=== PATIENT | male | born 1965 | race Caucasian/White ===

== ENCOUNTER 2017-02-24 05:46 | Outpatient (CLI) | payer BC ==
[~2017-02-24] VITALS: Ht 177.8 cm; Wt 117.9 kg
[~2017-02-24 05:46] MED LIST: ASP325TEC PO; BENA1TAB12 PO; NIAC1000 PO
[2017-02-24] MEDS ORDERED: METF1000 PO (11:35)
[2017-02-24] MEDS ORDERED: BENA1TAB15 PO (11:35)
[2017-02-24] MEDS ORDERED: PANT40TA3 PO (11:35)
== END 2017-02-24 12:01 ==
LOC: PREOP 05:46
PROVIDERS: ATTEND Internal Medicine
DX: Z01.818 Encounter for other preprocedural examination (principal); Z12.11 Encounter for screening for malignant neoplasm of colon

== ENCOUNTER 2017-02-26 07:01 | Day surgery (SDC) | payer BC, OTHER ==
--- NOTE | 2017-02-03 08:37 | HISTORY AND PHYSICAL ---
DATE OF SERVICE: HISTORY OF PRESENT ILLNESS: The patient is a 51-year-old white male who presented to the office for followup of hypertension and insulin resistance. He has not accomplished screening colonoscopy and this was set up for February 26. He seemed to be of average risk as he is not aware of any family history for colon cancer or polyps, although he does not know a lot about family history on questioning. He denies any bowel habit change and has noted no bright red blood per rectum or melena. PAST MEDICAL HISTORY: Hypertension and insulin resistance with overweight status. PAST SURGICAL HISTORY: He has had a deviated septum correction surgery with no past abdominal surgeries. He had a right ACL repair in 1981. SOCIAL HISTORY: He has no past drinking or smoking history. He is unemployed and with children. PHYSICAL EXAMINATION: GENERAL: Reveals a pleasant white male 257 pounds, 5 feet 11 inches. VITAL SIGNS: Blood pressure 130/98 at the beginning of the interview. At the end of the interview, he was down to 120/86. CHEST: Clear. CARDIOVASCULAR: Regular rate and rhythm without murmur, S3 or S4. ABDOMEN: Soft, supple without mass, organomegaly or tenderness. Rectal examination deferred at the time of colonoscopy. EXTREMITIES: Reveal no cyanosis, clubbing or edema. ASSESSMENT: The patient was set up for screening colonoscopy on February. Prep instructions with Suprep kit were given and questions were answered. Job ID: [id number] DocumentID: [id number] Dictated Date: 02/02/2017 09:51:01 Adjunct Spanish Instructor Date: 02/02/2017 10:33:55 Dictated By: ESTEFANY POLANCO MD
[~2017-02-26] VITALS: Ht 177.8 cm; Wt 117.9 kg
[~2017-02-26 07:01] MED LIST changes: +BENA1TAB15 PO; +METF1000 PO; +PANT40TA3 PO
[2017-02-26] MEDS ORDERED: 1/2 NS IV SOLUTION 1,000 ML IV ONE (07:11)
[2017-02-26] MEDS ORDERED: 1/2 NS IV SOLUTION 1,000 ML IV STA (07:13)
[2017-02-26] MEDS ORDERED: MIDAZOLAM 2 MG/2 ML (VERSED) VIAL IVP PRN (07:15)
[2017-02-26] MEDS ORDERED: LIDOCAINE JELLY 2% (XYLOCAINE) 5 ML TUBE MM PRN (07:15)
[2017-02-26 07:26] VITALS: BP 158/97
--- NOTE | 2017-02-26 07:30 | Pre-Op Note & Conscious Sedat ---
Pre-Operative Progress Note H&P Reviewed The H&P was reviewed, patient examined and no changes noted. Date H&P Reviewed: Feb 26, 2017 Time H&P Reviewed: 07:30 Conscious Sedation Pre-Proced ASA Class: 2 Airway Mallampati Classification: (resighini appropriate class) I. II. III, IV Lungs Heart ASA score ASA 1: a normal healthy patient ASA 2: a patient with a mild systemic disease (mid diabetes, controlled hypertension, obesity ASA 3: a patient with a severe systemic disease that limits activity (angina , COPD, prior Myocardial infarction) ASA 4: a patient with an incapacitating disease that is a constant threat to life (CHF, renal failure) ASA 5: a moribund patient not expected to survive 24 hrs. (ruptured aneurysm) ASA 6: a declared brain patient whose organs are being harvested. For emergent operations, add the letter E after the classification Grade 3 Sedation Plan: Analgesia, Amnesia, Plan communicated to team members, Discussed options with patient/fam, Discussed risks with patient/fam Note The patient is an appropriate candidate to undergo the planned procedure, sedation, and anesthesia. The patient immediately re-assessed prior to indication. ESTEFANY POLANCO MD Feb 26, 2017 07:30
[2017-02-26] MEDS ORDERED: LIDOCAINE JELLY 2% (XYLOCAINE) 5 ML TUBE ONE (07:37)
[2017-02-26] MEDS ORDERED: fentaNYL INJECTION 100 MCG/2 ML AMP ONE (07:38)
[2017-02-26] MEDS ORDERED: MIDAZOLAM 2 MG/2 ML (VERSED) VIAL ONE ×3 (07:38)
[2017-02-26] MEDS: fentaNYL INJECTION 100 MCG/2 ML AMP IVP PRN ×2 (07:57→08:04)
[2017-02-26 08:40] VITALS: BP 166/105
[2017-02-26 09:10] VITALS: BP 156/113
[2017-02-26 09:15] VITALS: BP 156/113
--- NOTE | 2017-02-27 14:06 | OPERATIVE REPORT ---
DATE OF SERVICE: COLONOSCOPY SUMMARY INDICATION FOR THE PROCEDURE: Screening. DESCRIPTION OF PROCEDURE: The patient was placed in the left lateral decubitus position. Prior to undergoing colonoscopy, a digital rectal evaluation was performed. Anal sphincter tone was normal. The perianal reflex was intact. The prostate was normal in size, anodular and nontender to digital inspection. No abnormalities noted on additional inspection of anal canal or distal rectal vault. The colonoscope was then inserted into the rectum under direct visualization advanced to the cecum. The cecum was identified by identification of the ileocecal valve and the cecal strap. Photographic documentation was obtained. A careful inspection was made as the colonoscope was withdrawn. FINDINGS: There was no evidence for internal or external hemorrhoids and the rectum, sigmoid colon, descending colon, splenic flexure, transverse colon, hepatic flexure, ascending colon and cecum were unremarkable without evidence for diverticular disease or neoplasia. ASSESSMENT: Normal colonoscopy to the cecum. We will advocate consideration for repeat screening colonoscopy in 10 years as the patient is not aware of any family history for colon cancer. Job ID: [id number] DocumentID: [id number] Dictated Date: 02/26/2017 13:07:05 Hydrogen Treater Date: 02/27/2017 04:05:14 Dictated By: ESTEFANY POLANCO MD
== END 2017-02-26 09:15 | disposition home or self-care (01) ==
LOC: ENDO 07:01
PROVIDERS: ATTEND Internal Medicine
DX: Z12.11 Encounter for screening for malignant neoplasm of colon (principal); I10 Essential (primary) hypertension; E88.81 Metabolic syndrome and other insulin resistance; E66.3 Overweight

== ENCOUNTER → 2022-07-01 | Outpatient (CLI) | payer OTHER ==
[~2022-07-01] MED LIST changes: +METF-399 PO; -METF1000 PO; -PANT40TA3 PO; +PANT40TA52 PO
== END ==
LOC: ORTHO 09:18
PROVIDERS: ATTEND Orthopaedic Surgery
DX: M17.0 Bilateral primary osteoarthritis of knee (principal)
CPT/HCPCS: 99203

== ENCOUNTER → 2022-08-04 | Outpatient (CLI) | payer OTHER ==
--- NOTE | 2022-08-04 15:33 | Diagnostic Imaging Report ---
EXAMINATION: Chest 2 view HISTORY: Chest pain COMPARISON: None available. FINDINGS: The lungs are clear without edema or pneumonia. No pleural effusion or pneumothorax. Heart size is normal. IMPRESSION: 1. Clear lungs. Dictated by: Dictated on workstation # [id number]
--- NOTE | 2022-08-04 16:46 | Diagnostic Imaging Report ---
EXAMINATION: Left knee radiographs, 2 views. Right knee radiographs, 2 views. COMPARISON: None. HISTORY: 57-year-old male, bilateral knee pain. FINDINGS: There is moderate medial and patellofemoral compartment joint space loss of the left knee. There are tiny left patellofemoral compartment osteophytes. There is no left knee joint effusion. There is severe tricompartmental joint space loss of the right knee. There is a moderate-sized right knee joint effusion. There is a metallic staple in the region of the lateral aspect of the proximal tibial metaphysis. There is chondrocalcinosis. There is no identified acute fracture. There is nonspecific soft tissue swelling anteriorly on the right. IMPRESSION: 1. Severe tricompartmental osteoarthritis of the right knee with moderate sized knee joint effusion. 2. Moderate medial and patellofemoral compartment osteoarthritis of the left knee without left knee joint effusion. 3. No identified acute bony abnormality. Dictated by: Dictated on workstation # [id number]
== END ==
LOC: ORTHO 11:17
PROVIDERS: ATTEND Orthopaedic Surgery
DX: Z01.89 Encounter for other specified special examinations (principal); M17.0 Bilateral primary osteoarthritis of knee; R07.9 Chest pain, unspecified
CPT/HCPCS: 71046

== ENCOUNTER 2022-08-10 08:13 | Outpatient (CLI) | payer OTHER ==
[~2022-08-10] VITALS: Ht 177.8 cm; Wt 116.7 kg
[2022-08-10] MEDS ORDERED: AMLO-251 PO (08:57)
[2022-08-10] MEDS ORDERED: MULTI VITAMIN (08:57)
[2022-08-10] MEDS ORDERED: ACET-2422 PO (08:57)
[2022-08-10] MEDS ORDERED: DIPH25TA29 PO (08:57)
[2022-08-10] MEDS ORDERED: FLUT9.9S NS (08:57)
[2022-08-10] MEDS ORDERED: IBUP-1773 PO (09:02)
[2022-08-10 09:37] LABS: BILIRUBIN,URINE NEGATIVE (NEGATIVE); CLARITY,URINE CLEAR; COLOR,URINE YELLOW; GLUCOSE, URINE (UA) NEGATIVE (NEGATIVE); KETONES,URINE NEGATIVE (NEGATIVE); LEUKOCYTE ESTERASE ,URINE NEGATIVE (NEGATIVE); NITRITE,URINE NEGATIVE (NEGATIVE); PROTEIN,URINE NEGATIVE (NEGATIVE)
[2022-08-10 09:39] VITALS: BP 137/99
[2022-08-10 09:45] LABS: BASOPHILS % (AUTO) 1 % (0-10); EOSINOPHILS # (AUTO) 0.1 10^3/uL (0.0-0.3); EOSINOPHILS % (AUTO) 3 % (0-10); HEMATOCRIT 41 % (40-54); HEMOGLOBIN 14.3 g/dL (13.3-17.7); LYMPHOCYTES # (AUTO) 0.9 10^3/uL (1.0-4.0); LYMPHOCYTES % (AUTO) 16 % (12-44); MEAN CORPUSCULAR HEMOGLOBIN 31 pg (25-34); MEAN CORPUSCULAR HGB CONC 35 g/dL (32-36); MEAN CORPUSCULAR VOLUME 88 fL (80-99); MEAN PLATELET VOLUME 8.9 fL (9.0-12.2); MONOCYTES # (AUTO) 0.7 10^3/uL (0.0-1.0); MONOCYTES % (AUTO) 13 % (0-12); NEUTROPHILS # (AUTO) 3.8 10^3/uL (1.8-7.8); NEUTROPHILS % (AUTO) 68 % (42-75); PLATELET COUNT 314 10^3/uL (130-400); WHITE BLOOD COUNT 5.6 10^3/uL (4.3-11.0)
[2022-08-10 09:55] LABS: BACTERIA,URINE NEGATIVE /HPF
[2022-08-10 10:03] LABS: CALCIUM 9.7 MG/DL (8.5-10.1); CREATININE SERUM 0.88 MG/DL (0.60-1.30); POTASSIUM 3.6 MMOL/L (3.6-5.0)
--- NOTE | 2022-08-10 11:40 | Diagnostic Imaging Report ---
INDICATION: Preoperative evaluation prior to knee replacement. COMPARISON: 08/04/2022 FINDINGS: Frontal and lateral views of the chest demonstrate normal heart size and pulmonary vascularity. The lungs are clear. There are no signs of infiltrate, pleural effusions or pneumothoraces. The visualized osseous structures show no acute abnormalities. IMPRESSION: 1. No acute process. No signs of infiltrates, effusions or pneumothoraces. Dictated by: Dictated on workstation # [id number]
== END 2022-08-10 12:53 ==
LOC: PREOP 08:13
PROVIDERS: ATTEND Orthopaedic Surgery
DX: Z01.818 Encounter for other preprocedural examination (principal); M17.11 Unilateral primary osteoarthritis, right knee
CPT/HCPCS: 36415; 71046; 80048; 81000; 85025; 87081; 93005

== ENCOUNTER 2022-08-17 08:08 | Inpatient (IN) | payer OTHER ==
[2022-08-17] VITALS (9 sets, daily range): BP systolic 124–153; BP diastolic 77–98
[~2022-08-17] VITALS: Ht 177.8 cm; Wt 116.7 kg
[~2022-08-17 08:08] MED LIST changes: +ACET-2422 PO; +AMLO-251 PO; +DIPH25TA29 PO; +FLUT9.9S NS; +IBUP-1773 PO; +MULTI VITAMIN
[2022-08-17] MEDS ORDERED: ceFAZolin INJECTION 2,000 MG in NS (IVPB) 50 ML IV ONE (08:15)
[2022-08-17] MEDS: LACTATED RINGERS 1,000 ML IV PRN ×2 (08:36→10:30)
[2022-08-17] MEDS ORDERED: fentaNYL INJ 100 MCG/2 ML AMP ONE (09:29)
[2022-08-17] MEDS ORDERED: BUPIVACAINE 0.5% 30 ML (SENSORCAINE) VIAL ONE (09:34)
--- NOTE | 2022-08-17 09:43 | Progress Note-Pre Operative ---
Pre-Operative Progress Note Date of Available H&P: Aug 04, 2022 Date H&P Reviewed: Aug 17, 2022 Time H&P Reviewed: 09:35 History & Physical: H&P Reviewed, Patient Examed, No changes noted Pre-Operative Diagnosis: Right Knee Primary Osteoarthritis MARIUM CULLEN MD Aug 17, 2022 09:43
[2022-08-17] MEDS ORDERED: MIDAZOLAM 2 MG/2 ML (VERSED) VIAL ONE (09:46)
[2022-08-17] MEDS ORDERED: TRANEXAMIC ACID 100 MG/ML 10 ML INJECTION ONE (10:07)
[2022-08-17] MEDS ORDERED: PROPOFOL INJECTION 50 ML IV ONE (11:43)
[2022-08-17] MEDS ORDERED: ONDANSETRON 4 MG/2 ML (SDV) Z0FRAN IV PRN (12:30)
[2022-08-17] MEDS ORDERED: BISACODYL 5 MG (DULCOLAX) TABLET PO PRN (12:30)
[2022-08-17] MEDS ORDERED: ACETAMINOPHEN 500 MG TAB (TYLENOL) PO PRN (12:30)
[2022-08-17] MEDS ORDERED: MILK OF MAGNESIA 400 MG/5 ML 30 ML UDC PO PRN (12:30)
--- NOTE | 2022-08-17 12:30 | Operative Report - Ortho ---
Operative Report Surgeon (s)/Drop Shipment Clerk (s) Surgeon MARIUM CULLEN MD Drop Shipment Clerk n/a Pre-Operative Diagnosis Right Knee Primary Osteoarthritis Post-Operative Diagnosis same Operative Report Date of Procedure: Aug 17, 2022 Name of Procedure Performed: Right Total Knee Arthroplasty Description & Findings After obtaining informed consent and marking the patient in the preoperative holding area, the patient did receive IV antibiotics. Patient was taken to the operating room and anesthesia was induced. Surgical timeout was taken. The right lower extremity was prepped and draped in the usual sterile fashion. Incision was made through prior scar and carried down to fascia. Arthrotomy was performed on the medial side of the patella. Patella was retracted laterally and knee was flexed. Found to have circumferential osteophtye around the distal femur as well as exposed bone in the weightbearing compartments. Hole was made in the distal femur for the intramedullary distal femoral cutting guide. Resection was made then the femur was sized as a 6. 4-in-1 block for a size [address]. Anterior cut was made and there was no notch. Posterior cut was made followed by the chamfers. Box cut was performed. Lug holes were drilled. Attention was turned to the tibial side, extramedullary tibial guide was put into place and aligned with the tibial crest. It was set to take 2 mm off of the affected side. Drop fe was used to confirm alignment. Resection was made and was parallel to the joint line. Tibial bone block was removed. [place]ina locomotive lubricating systems clerk was put into place and the menisci and posterior osteophytes were removed. The knee was trialed with a size 6 femur and a size 6 tibia with an 11 mm poly trial. It was found to come out to full extension and flexed beyond 120 degrees. It was stable to varus and valgus stress throughout its range of motion. This was accepted. Knee was brought out into extension and the patella was prepared for an inset patellar button. Trial patella was placed and tracked well. Trial implants were removed. Tibial tray was pinned and punched. Tibial press fit guide was placed and holes were drilled. The cut bone surfaces were lavaged with pulsatile normal saline. Implants were opened and assembled on the back table. A size 6 press fit tibial component was impacted into place. A size 6 press fit femoral component was impacted into place. Tibial tray was lavaged with saline. An 11 mm thick polyethylene component was locked into placed and the locking mechanism was checked. Knee was brought into extension. Press fit patellar component was p laced and pressurized. Betadine soak was performed and then, the knee was irrigated with normal saline. The knee was once again trialed; found to come to full extension, flexed beyond 120 degrees, and was stable to varus and valgus stress. Tourniquet was dropped and electrocautery was used for hemostasis. Fascial layer was closed with #2 Stratafix. The subcutaneous layer was closed with 2-0 Vicryl. The skin was closed with a running subcuticular 3-0 V-loc. Wound was dressed with steri- strips, xeroform, 4x4s, ABD, webril, and CÉSAR wrap. Patient tolerated the procedure well and was stable to the recovery room. Anesthesia Type Spinal Estimated Blood Loss 150 ml Specimen(s) collected/removed None MARIUM CULLEN MD Aug 17, 2022 12:30
--- NOTE | 2022-08-17 12:55 | Diagnostic Imaging Report ---
INDICATION: Postop right knee surgery, replacement TECHNIQUE: 2 portable post operative radiographs of the knee CORRELATION STUDY: None FINDINGS: There are postsurgical changes of a total knee arthroplasty. Alignment is anatomic. Installed hardware appearing unremarkable. Staple over the anterior lateral aspect proximal tibia. Overlying soft tissue gas collections and skin elijah are present. IMPRESSION: Postsurgical changes of a total knee replacement. Dictated by: Dictated on workstation # [id number]
[2022-08-17] MEDS ORDERED: ONDANSETRON 4 MG/2 ML (SDV) Z0FRAN IVP PRN (13:15)
[2022-08-17] MEDS: NS IV 1000 ML 1,000 ML IV SCH ×2 (14:25→22:41)
--- NOTE | 2022-08-17 14:34 | Physical Therapy Progress Note ---
Therapy Progress Note Patient unable to safely participate with skilled PT at this time due to spinal block. PT to evaluate patient tomorrow ZOYA Lawrence PT Aug 17, 2022 14:34
[2022-08-17] MEDS: morphine INJ 4 MG/ML 1 ML (VIAL/SYRINGE) IVP PRN ×3 (15:43→20:04)
[2022-08-17] MEDS: ASPIRIN E.C. 81 MG (ECOTRIN) TAB PO SCH (18:24)
[2022-08-17] MEDS: CELECOXIB 100 MG (CeleBREX) CAP PO SCH (20:05)
[2022-08-17] MEDS: DOCUSATE SODIUM 100 MG (COLACE) CAP PO SCH (20:05)
[2022-08-17] MEDS: ceFAZolin INJECTION 2,000 MG in NS (IVPB) 50 ML IV SCH (20:06)
[2022-08-17] MEDS ORDERED: ceFAZolin INJECTION 2,000 MG in NS (IVPB) 50 ML IV SCH (21:00)
[2022-08-17] MEDS ORDERED: amLODIPine 10 MG (NORVASC) TAB ONE (21:35)
[2022-08-17] MEDS: amLODIPine 10 MG (NORVASC) TAB PO SCH (21:38)
[2022-08-18] VITALS (7 sets, daily range): BP systolic 135–168; BP diastolic 76–89
[2022-08-18] MEDS: ceFAZolin INJECTION 2,000 MG in NS (IVPB) 50 ML IV SCH (05:47)
[2022-08-18 05:48] LABS: HEMOGLOBIN 11.7 g/dL (13.3-17.7)
[2022-08-18] MEDS: MULTIVIT W/MINERALS TAB (THERAGRAN M) PO SCH (05:48)
[2022-08-18] MEDS: NS IV 1000 ML 1,000 ML IV SCH (08:36)
[2022-08-18] MEDS: DOCUSATE SODIUM 100 MG (COLACE) CAP PO SCH ×2 (08:40→20:23)
[2022-08-18] MEDS: ASPIRIN E.C. 81 MG (ECOTRIN) TAB PO SCH ×2 (08:40→17:19)
[2022-08-18] MEDS: CELECOXIB 100 MG (CeleBREX) CAP PO SCH ×2 (08:40→20:23)
[2022-08-18] MEDS: lisINopril 40 MG (PRINIVIL) TABLET PO SCH (08:40)
[2022-08-18] MEDS: PANTOPRAZOLE 40 MG (PROTONIX) TAB PO SCH (08:41)
[2022-08-18] MEDS: FLUTICASONE NASAL SPRAY (FLONASE) 16 GM BTL NS SCH (08:41)
--- NOTE | 2022-08-18 08:41 | Occupational Therapy Eval ---
OT Evaluation-General/PLF Medical Diagnosis Admission Date Aug 17, 2022 at 13:20 Medical Diagnosis: R TKA Onset Date: Aug 17, 2022 Therapy Diagnosis Therapy Diagnosis: S/P RTKA Height/Weight Height (Feet): 5 Height (Inches): 10.00 Weight (Pounds): 260 Weight (Ounces): 0.0 Precautions Precautions/Isolations: Fall Prevention, Standard Precautions Weight Bear Status Weight Bearing Restriction: Weight Bearing/Tolerated Location Restriction: R LE Referral Referral Reason: Self Care, Evaluation/Treatment Medical History Pertinent Medical History: Arthritis Current History S/P RTKA Reviewed History: Yes ADL-Prior Level of Function SCALE: Activities may be completed with or without assistive devices. 7-Tlsjmcybqx-bcsmfom completes the activity by him/herself with no assistance from a helper. 5-Set-up or Clean-up Assistance-helper sets up or cleans up; patient completes activity. [place] assists only prior to or following the activity. 4-Supervision or Touching Assistance-helper provides verbal cues and/or touching/steadying and/or contact guard assistance as patient completes activity. Assistance may be provided throughout the activity or intermittently. 3-Partial/Moderate Assistance-helper does LESS THAN HALF the effort. [place] lifts, holds or supports trunk or limbs, but provides less than half the effort. 2-Substantial/Maximal Assistance-helper does MORE THAN HALF the effort. [place] lifts or holds trunk or limbs and provides more than half the effort. 0-Lhmoqpton-aiezfr does ALL the effort. Patient does none of the effort to complete the activity. Or, the assistance of 2 or more helpers is required for the patient to complete the activity. If activity was not attempted, code reason: 7-Patient Refused. 9-Not Applicable-not attempted and the patient did not perform the activity before the current illness, exacerbation or injury. 10-Not Attempted due to Environmental Limitations-(lack of equipment, weather restraints, etc.). 88-Not Attempted due to Medical Conditions or Safety Concerns. Drive Self: Yes OT Current Status Subjective Increased pain d/t PT this morning Pain Location: Right Location Body Site: Knee Mental Status/Objective Patient Orientation: Person, Place, Time, Situation Attachments: IV Current Upper Extremity ROM BUE ROM/Strength/coordination WFLS ADL-Treatment Eating (QC): 6 Oral Hygiene (QC): 5 (standing at sink w/ FWW) Shower/Bathe Self (QC): 7 (declined, reports walk in shower at home w/ GBs) Upper Body Dressing (QC): 5 (d/t IV) Lower Body Dressing (QC): 5 (instruction for sequence only) On/Off Footwear (QC): 5 (increased pain w/ knee flexion) Toileting Hygiene (QC): 5 Education OT Patient Education: Correct positioning, Modified ADL techniques, Progress toward Goal/Update tx plan, Purpose of tx/functional activities, Reviewed precautions, Rehab process, Safety issues, Transfer techniques, Use of adapted equipment (instruction for use w/ ADLS and stone grader) Teaching Recipient: Patient, Family Teaching Methods: Demonstration, Discussion Response to Teaching: Return Demonstration OT Outside Solar Sales Consultant Goals Senior Living Goals 1=Demonstrate adherence to instructed precautions during ADL tasks. 2=Patient will verbalize/demonstrate understanding of assistive devices/modifications for ADL. 3=Patient will improve strength/tolerance for activity to enable patient to perform ADL's. OT Education/Plan Problem List/Assessment Assessment: No Skilled OT Needs ID'd Discharge Recommendations Plan/Recommendations: Discontinue OT Therapy Discharge Recommendati: Post Acute OT (patient reports OP physical therapy) Treatment Plan/Plan of Care Treatment,Training & Education: Yes Patient would benefit from OT for education, treatment and training to promote independence in ADL's, mobility, safety and/or upper extremity function for ADL's. Plan of Care: ADL Retraining, Functional Mobility, UE Funct Exercise/Act Comment Patient remains up in chair, nurse to dose pain meds, present. Pt reports constipation. Treatment Duration: Aug 18, 2022 Frequency: 1 time per week Estimated Hrs Per Day: .25 hour per day Agreement: Yes Rehab Potential: Good Time Start Time: 08:20 Stop Time: 08:44 DATE: Aug 18, 2022 Total Time Billed (hr/min): 24 Billed Treatment Time 1 visit EVL 1, ADL 1 24 min SELINA SARABIA OT Aug 18, 2022 08:41
[2022-08-18] MEDS ORDERED: NON-FORMULARY MEDICATION 1 EA EA (Fluticasone Propionate (Flonase Allergy Relief) 2 SPRAY) NS SCH (09:00)
[2022-08-18] MEDS ORDERED: BENAZEPRIL PO SCH (09:00)
[2022-08-18] MEDS ORDERED: HYDROCHLOROTHIAZIDE PO SCH (09:00)
[2022-08-18] MEDS ORDERED: amLODIPine 10 MG (NORVASC) TAB PO SCH (09:00)
[2022-08-18] MEDS ORDERED: [UNRECOGNIZED DRUG - OTHER] PO SCH (09:00)
--- NOTE | 2022-08-18 09:11 | Anesthesia-Regional Post-Op ---
Regional Patient Condition Mental Status: Alert, Oriented x3 Circulation: Same as Pre-Op Headache: Absent Sensation: Full Recovery Motor Block: Absent Post Op Complications Complications None Follow Up Care/Instructions Patient Instructions None needed. Anesthesia/Patient Condition Patient is doing well, no complaints, stable vital signs, no apparent adverse anesthesia problems. No complications reported per nursing. ABIEL HUDDLESTON CRNA Aug 18, 2022 09:11
--- NOTE | 2022-08-18 09:42 | Physical Therapy Evaluation ---
PT Evaluation-General Medical Diagnosis Admission Date Aug 17, 2022 at 13:20 Medical Diagnosis: R TKA Onset Date: Aug 17, 2022 Therapy Diagnosis Therapy Diagnosis: debility Height/Weight Height (Feet): 5 Height (Inches): 10.00 Weight (Pounds): 260 Weight (Ounces): 0.0 Precautions Precautions/Isolations: Fall Prevention, Standard Precautions Referral Physician: Jamil Reason for Referral: Evaluation/Treatment Medical History Pertinent Medical History: Arthritis Current History s/p elective right TKR Reviewed History: Yes Social History Home: Single Level Current Living Status: Spouse Entry Into Home: Ramp Prior Prior Level of Function SCALE: Activities may be completed with or without assistive devices. 6-Heqxzjcvex-mqlbxcd completes the activity by him/herself with no assistance from a helper. 5-Set-up or Clean-up Assistance-helper sets up or cleans up; patient completes activity. [place] assists only prior to or following the activity. 4-Supervision or Touching Assistance-helper provides verbal cues and/or touching/steadying and/or contact guard assistance as patient completes activity. Assistance may be provided throughout the activity or intermittently. 3-Partial/Moderate Assistance-helper does LESS THAN HALF the effort. [place] lifts, holds or supports trunk or limbs, but provides less than half the effort. 2-Substantial/Maximal Assistance-helper does MORE THAN HALF the effort. [place] lifts or holds trunk or limbs and provides more than half the effort. 2-Vzvunovdx-xczrwa does ALL the effort. Patient does none of the effort to complete the activity. Or, the assistance of 2 or more helpers is required for the patient to complete the activity. If activity was not attempted, code reason: 7-Patient Refused. 9-Not Applicable-not attempted and the patient did not perform the activity before the current illness, exacerbation or injury. 10-Not Attempted due to Environmental Limitations-(lack of equipment, weather restraints, etc.). 88-Not Attempted due to Medical Conditions or Safety Concerns. Bed Mobility: 6 Transfers (B,C,W/C): 6 Gait: 6 Stairs: 6 Indoor Mobility (Ambulation): Independent Stairs: Independent Prior Devices Use: None PT Evaluation-Current Subjective Patient agrees to PT. Pain Numeric Pain Scale: 8 Location: Right Location Body Site: Knee Pain Description: Acute Objective Patient Orientation: Normal For Age Attachments: IV ROM/Strength ROM Lower Extremities right knee AAROM flexion 60 degrees/5 degrees extension left knee AROM WFL Strength Lower Extremities right LE 3+/5 grossly/left LE 5/5 Integumentary/Posture Integumentary refer to nursing notes Bowel Incontinence: No Bladder Incontinence: No Posture WFL Neuromuscular (Tone, Coordination, Reflexes) grossly intact Sensory Vision: Functional Hearing: Functional Transfers Lying to Sitting/Side of Bed(Q: 4 Sit to Stand (QC): 4 Chair/Gtc-ha-Slkca Xfer(QC): 4 Gait Mode of Locomotion: Walk Anticipated Mode of Locomotion: Walk Walk 10 feet (QC): 4 Walk 50 ft with 2 Turns(QC): 4 Walk 150 ft (QC): 4 Distance: 250' Gait Assistive Device: FWW Comments/Gait Description slow, antalgic Balance Sitting Static: Normal Sitting Dynamic: Normal Standing Static: Normal Standing Dynamic: Normal Treatment AAROM right LE exercises AP, QS, HS, SLR 15 reps each/seated LAQ 15 reps Assessment/Needs Patient progressing with treatment plan and is up in recliner with needs met. PT to increase activity as tolerated by patient. Rehab Potential: Good PT Colon Therapist Goals Detention Goals PT Detention Goals Time Frame: Aug 22, 2022 Roll Left & Right (QC): 6 Sit to Lying (QC): 6 Lying-Sitting on Side/Bed(QC): 6 Sit to Stand (QC): 6 Chair/Kup-ct-Jkrwh Xfer(QC): 6 Toilet Transfer (QC): 6 Walk 10 feet (QC): 6 Walk 50ft with 2 Turns (QC): 6 Walk 150 ft (QC): 6 PT Plan Problem List Problem List: Safety, Balance, Gait, Transfer, ROM Treatment/Plan Treatment Plan: Continue Plan of Care Treatment Plan: Bed Mobility, Education, Functional Activity Marii, Functional Strength, Gait, Safety, Therapeutic Exercise, Transfers Treatment Duration: Aug 22, 2022 Frequency: 11 times per week Estimated Hrs Per Day: .5 hour per day Patient and/or Family Agrees t: Yes Time Time In: 730 Time Out: 758 DATE: Aug 18, 2022 Total Billed Treatment Time: 28 Total Billed Treatment 1 visit EVModC 10 min FA 18 min ZOYA VORA PT Aug 18, 2022 09:42
--- NOTE | 2022-08-18 09:57 | Progress Note - Ortho ---
Progress Note Subjective Date of Exam 08/18/22 Chief Complaint POD #1 R TKA HPI/Events since last exam doing well overall, did well with therapy this AM Review of Systems - Allergies: Coded Allergies: No Known Drug Allergies (Unverified , 08/10/22) Home Meds Reported Medications Ibuprofen (Ibuprofen) Unknown Strength Tablet, PO Q6H PRN for PAIN-MILD, TAB 08/10/22 [Multi Vitamin] Unknown Strength No Conflict Check 08/10/22 Fluticasone Propionate (Flonase Allergy Relief) 50 Mcg/Actuation [place].susp, 2 SPRAY NS DAILY, #1 EACH 2 SPRAYS PER NOSTRIL DAILY X 2 DAYS THEN 1 SPRAY DAILY 08/10/22 Diphenhydramine HCl (Diphenhydramine HCl) Unknown Strength Tablet, PO, TAB 08/10/22 Amlodipine Besylate (Amlodipine Besylate) 10 Mg Tablet, 10 MG PO DAILY, TAB 08/10/22 Acetaminophen (Acetaminophen ER) Unknown Strength Tablet.er, PO, TAB 08/10/22 Pantoprazole Sodium (Pantoprazole Sodium) 40 Mg Tablet.dr, 40 MG PO DAILY, TAB 02/24/17 Metformin HCl (Metformin HCl) 1,000 Mg Tablet, 2000 MG PO with supper, TAB take 2 (1000mg) tabs 02/24/17 Benazepril/Hydrochlorothiazide (Benazepril-Hctz 20-25 mg Tab) 20 Mg-25 Mg Tablet, 2 EACH PO DAILY, TAB 02/24/17 Objective Exam R Knee: Dressing C/D/I, +DF of Ankle, no s/s of DVT Vital Signs Vital Signs Date Time Temp Pulse Resp B/P (MAP) Pulse Ox O2 Delivery O2 Flow Rate FiO2 08/18/22 08:00 37.6 90 18 163/84 (110) 93 Room Air 08/18/22 03:04 37.0 85 20 146/84 (104) 93 Room Air 08/18/22 00:00 36.4 89 20 141/84 (103) 94 Room Air 08/17/22 20:00 Room Air 0.00 08/17/22 19:23 37.0 83 19 143/83 (103) 93 Room Air 08/17/22 15:55 36.4 75 19 153/82 (105) 96 Room Air 08/17/22 15:31 Room Air 0.00 08/17/22 14:00 96 Room Air 0.00 08/17/22 13:15 Room Air 08/17/22 13:10 36.2 16 129/85 (100) 99 Room Air 08/17/22 13:00 Room Air 08/17/22 13:00 16 135/93 (107) 98 Room Air 08/17/22 12:50 18 133/86 (102) 99 Room Air 08/17/22 12:45 Room Air 08/17/22 12:40 16 135/85 (102) 95 Room Air 08/17/22 12:30 16 129/77 (94) 98 Room Air 08/17/22 12:30 Room Air 08/17/22 12:23 36.2 16 124/81 (95) 98 Room Air 08/17/22 12:23 Room Air I & O 08/18/22 07:00 Intake Total 4100 ml Output Total 695 ml Balance 3405 ml Lab Results Laboratory Tests 08/18/22 05:32: Hemoglobin 11.7L, Hematocrit 34L Imaging 2 postop views of the right knee dated 08/17/22 were reviewed from PACS and demonstrated prior total knee arthroplasty with components in good position, no complication, no change in prior surgical staple in tibia Assessment and Plan Assessment Right Knee Primary Osteoarthritis s/p Right Total Knee Arthroplasty Problem List Right Knee Primary Osteoarthritis s/p Right Total Knee Arthroplasty Plan PT/OT DVT Prophylaxis Home with outpatient PT tomorrow Final Diagonsis Right Knee Primary Osteoarthritis s/p Right Total Knee Arthroplasty Level of the visit: Level 3 (global) MARIUM CULLEN MD Aug 18, 2022 09:57
--- NOTE | 2022-08-18 14:22 | Physical Therapy Daily Note ---
PT Daily Note-Current Subjective Patient agrees to PT. Pain Section J - Health Conditions 1. Rarely or not at all 2. Occasionally 3. Frequently 4. Almost constantly 8. Unable to answer Pain Effect on Sleep: 1 Pain Interference with Therapy: 1 Pain Interference w/Day-to-Day: 1 Mental Status Patient Orientation: Normal For Age Transfers SCALE: Activities may be completed with or without assistive devices. 3-Yvmboqevws-faqwije completes the activity by him/herself with no assistance from a helper. 5-Set-up or Clean-up Assistance-helper sets up or cleans up; patient completes activity. [place] assists only prior to or following the activity. 4-Supervision or Touching Assistance-helper provides verbal cues and/or touching/steadying and/or contact guard assistance as patient completes activity. Assistance may be provided throughout the activity or intermittently. 3-Partial/Moderate Assistance-helper does LESS THAN HALF the effort. [place] lifts, holds or supports trunk or limbs, but provides less than half the effort. 2-Substantial/Maximal Assistance-helper does MORE THAN HALF the effort. [place] lifts or holds trunk or limbs and provides more than half the effort. 1-Ifwhwcgyt-aswpnp does ALL the effort. Patient does none of the effort to complete the activity. Or, the assistance of 2 or more helpers is required for the patient to complete the activity. If activity was not attempted, code reason: 7-Patient Refused. 9-Not Applicable-not attempted and the patient did not perform the activity before the current illness, exacerbation or injury. 10-Not Attempted due to Environmental Limitations-(lack of equipment, weather restraints, etc.). 88-Not Attempted due to Medical Conditions or Safety Concerns. Sit to Lying (QC): 6 Lying to Sitting/Side of Bed(Q: 6 Sit to Stand (QC): 6 Gait Training Distance: 300' Walk 10 feet (QC): 5 Walk 50 ft with 2 Turns(QC): 5 Walk 150 ft (QC): 5 Gait Assistive Device: FWW steady, reciprocal pattern Exercises Supine Ex: Ankle pumps, Quad Set, Heel Slides, Straight leg raise Supine Reps: 15 (x 2 sets) Seated Therapy Exercises: Long arc quads Seated Reps: 15 Assessment Patient continues to progress with treatment plan and will dismiss to home with spouse tomorrow after therapy per patient report. PT Nursing Home Goals Cabinet Finisher Goals PT Cabinet Finisher Goals Time Frame: Aug 22, 2022 Roll Left & Right (QC): 6 Sit to Lying (QC): 6 Lying-Sitting on Side/Bed(QC): 6 Sit to Stand (QC): 6 Chair/Fsi-sd-Kocdw Xfer(QC): 6 Toilet Transfer (QC): 6 Walk 10 feet (QC): 6 Walk 50ft with 2 Turns (QC): 6 Walk 150 ft (QC): 6 PT Plan Treatment/Plan Treatment Plan: Continue Plan of Care Treatment Plan: Bed Mobility, Education, Functional Activity Marii, Functional Strength, Gait, Safety, Therapeutic Exercise, Transfers Treatment Duration: Aug 22, 2022 Frequency: 11 times per week Estimated Hrs Per Day: .5 hour per day Patient and/or Family Agrees t: Yes Time Time In: 1315 Time Out: 1338 DATE: Aug 18, 2022 Total Billed Treatment Time: 23 Total Billed Treatment 1 visit EX 13 min GT 10 min ZOYA VORA PT Aug 18, 2022 14:22
[2022-08-18] MEDS: amLODIPine 10 MG (NORVASC) TAB PO SCH (20:24)
[2022-08-19 05:38] LABS: HEMOGLOBIN 10.6 g/dL (13.3-17.7)
[2022-08-19] MEDS: MULTIVIT W/MINERALS TAB (THERAGRAN M) PO SCH (06:34)
[2022-08-19 07:15] VITALS: BP 133/77
[2022-08-19] MEDS: DOCUSATE SODIUM 100 MG (COLACE) CAP PO SCH (07:54)
[2022-08-19] MEDS: CELECOXIB 100 MG (CeleBREX) CAP PO SCH (07:54)
[2022-08-19] MEDS: PANTOPRAZOLE 40 MG (PROTONIX) TAB PO SCH (07:54)
[2022-08-19] MEDS: ASPIRIN E.C. 81 MG (ECOTRIN) TAB PO SCH (07:54)
[2022-08-19] MEDS: lisINopril 40 MG (PRINIVIL) TABLET PO SCH (07:55)
[2022-08-19] MEDS: FLUTICASONE NASAL SPRAY (FLONASE) 16 GM BTL NS SCH (07:56)
[2022-08-19] MEDS ORDERED: ASPI-1238 PO (08:40)
[2022-08-19] MEDS ORDERED: OXC5T PO (08:40)
--- NOTE | 2022-08-19 08:44 | Discharge Summary ---
Discharge Summary Hospital Course Hospital Course Date of Admission: Aug 17, 2022 at 13:20 Admission Diagnosis : Right Knee Primary Osteoarthritis Family Physician/Provider: Sidney Celeste MD Date of Discharge: 08/19/22 Discharge Diagnosis: [ Right Knee Primary Osteoarthritis s/p TKA] Hospital Course: [ On 08/17/22, patient underwent right total knee arthroplasty. Tolerated the procedure well and was transferred to the regular floor. On the day of surgery, began mechanical DVT prophylaxis and started to work with therapy. On POD #1, made good progress with therapy and began chemical DVT prophylaxis. On POD #2, continued to make progress with therapy and outpatient therapy arrangements were made. Patient was ready for discharge home.] Labs and Pending Lab Test: Laboratory Tests 08/19/22 05:22: Hemoglobin 10.6L, Hematocrit 30L Microbiology 08/17/22 MRSA Screen - Final, Complete MRSA not isolated Home Meds Active Aspirin EC (Aspirin) 81 Mg Tablet.dr 81 Mg PO BID WITH MEALS 14 Days Reported Ibuprofen Unknown Strength Tablet Unknown Dose PO Q6H PRN [Multi Vitamin] Unknown Strength Unknown Dose Flonase Allergy Relief (Fluticasone Propionate) 50 Mcg/Actuation [place].susp 2 [place] NS DAILY 2 SPRAYS PER NOSTRIL DAILY X 2 DAYS THEN 1 SPRAY DAILY Diphenhydramine HCl Unknown Strength Tablet Unknown Dose PO Amlodipine Besylate 10 Mg Tablet 10 Mg PO DAILY Acetaminophen ER (Acetaminophen) Unknown Strength Tablet.er Unknown Dose PO Pantoprazole Sodium 40 Mg Tablet.dr 40 Mg PO DAILY Metformin HCl 1,000 Mg Tablet 2,000 Mg PO WITH SUPPER take 2 (1000mg) tabs Benazepril-Hctz 20-25 mg Tab (Benazepril/Hydrochlorothiazide) 20 Mg-25 Mg Tablet 2 Each PO DAILY Assessment/Pt Instructions Continue WBAT on right leg. Walker for Assist. Dry telfa daily to knee. Outpatient therapy to begin Wednesday at [facility]. F/U in [address] Filipe Negron Discharge Instructions Discharge Diet: Regular Diet Discharge Physical Examination Vital Signs Vital Signs Date Time Temp Pulse Resp B/P (MAP) Pulse Ox O2 Delivery O2 Flow Rate FiO2 08/19/22 07:15 37.2 90 18 133/77 (95) 91 Room Air 08/18/22 20:25 0.00 Extremity: Other (R Knee: Incision C/D/I, +DF of ankle, no s/s of DVT) Allergies: Coded Allergies: No Known Drug Allergies (Unverified , 08/10/22) Discharge Summary Date of Admission Aug 17, 2022 at 13:20 Date of Discharge FILIPE NEGRON MD Aug 19, 2022 08:44
--- NOTE | 2022-08-19 10:03 | Physical Therapy Daily Note ---
PT Daily Note-Current Subjective Patient lying supine in bed upon PT arrival, agreeable to treatment. Patient rates pain at 3/10 in right knee. Pain Section J - Health Conditions 1. Rarely or not at all 2. Occasionally 3. Frequently 4. Almost constantly 8. Unable to answer Pain Effect on Sleep: 1 Pain Interference with Therapy: 1 Pain Interference w/Day-to-Day: 1 Mental Status Patient Orientation: Person, Place, Time, Situation Transfers SCALE: Activities may be completed with or without assistive devices. 3-Qtnyvwacog-akxrkmg completes the activity by him/herself with no assistance from a helper. 5-Set-up or Clean-up Assistance-helper sets up or cleans up; patient completes activity. [place] assists only prior to or following the activity. 4-Supervision or Touching Assistance-helper provides verbal cues and/or touchi ng/steadying and/or contact guard assistance as patient completes activity. Assistance may be provided throughout the activity or intermittently. 3-Partial/Moderate Assistance-helper does LESS THAN HALF the effort. [place] lifts, holds or supports trunk or limbs, but provides less than half the effort. 2-Substantial/Maximal Assistance-helper does MORE THAN HALF the effort. [place] lifts or holds trunk or limbs and provides more than half the effort. 9-Hsxxxybrj-jmulqq does ALL the effort. Patient does none of the effort to complete the activity. Or, the assistance of 2 or more helpers is required for the patient to complete the activity. If activity was not attempted, code reason: 7-Patient Refused. 9-Not Applicable-not attempted and the patient did not perform the activity before the current illness, exacerbation or injury. 10-Not Attempted due to Environmental Limitations-(lack of equipment, weather restraints, etc.). 88-Not Attempted due to Medical Conditions or Safety Concerns. Roll Left & Right (QC): 4 Sit to Lying (QC): 4 Lying to Sitting/Side of Bed(Q: 4 Sit to Stand (QC): 4 Weight Bearing Right Lower Extremity: Right Weight Bearing/Tolerated Left Lower Extremity: Left Full Weight Bearing Gait Training Does the Patient Walk?: Yes Distance: 300 feet Walk 10 feet (QC): 6 Walk 50 ft with 2 Turns(QC): 6 Walk 150 ft (QC): 6 Gait Assistive Device: FWW Exercises Supine Ex: Ankle pumps, Quad Set, Glut sets Supine Reps: 20 Assessment Current Status: Good Progress Patient tolerated treatment well. SBA for all bed mobility and transfers. Patient educated on using left LE to assist right LE with bed movement rather than having someone else assist him. Patient ambulates 300 feet with FWW, with [place]. Patient ambulates with mild flexed right knee during stance phase of right LE. Patient educated on need to facilitate right TKE during stance phase to promote return to normal gait pattern. Patient in bed post treatment with all needs met, nursing notified, call light in hand and in the room. PT Industrial Gas Servicer Goals Snf Goals PT Industrial Gas Servicer Goals Time Frame: Aug 22, 2022 Roll Left & Right (QC): 6 Sit to Lying (QC): 6 Lying-Sitting on Side/Bed(QC): 6 Sit to Stand (QC): 6 Chair/Htt-ov-Vywds Xfer(QC): 6 Toilet Transfer (QC): 6 Walk 10 feet (QC): 6 Walk 50ft with 2 Turns (QC): 6 Walk 150 ft (QC): 6 PT Plan Treatment/Plan Treatment Plan: Continue Plan of Care Treatment Plan: Bed Mobility, Education, Functional Activity Marii, Functional Strength, Gait, Safety, Therapeutic Exercise, Transfers Treatment Duration: Aug 22, 2022 Frequency: 11 times per week Estimated Hrs Per Day: .5 hour per day Patient and/or Family Agrees t: Yes Safety Risks/Education Patient Education: Gait Training, Transfer Techniques Teaching Recipient: Patient, Family Teaching Methods: Demonstration, Discussion Response to Teaching: Verbalize Understanding, Return Demonstration Time Time In: 935 Time Out: 959 DATE: Aug 19, 2022 Total Billed Treatment Time: 24 Total Billed Treatment Visit, Gait, Ex KARTIK DAY PT Aug 19, 2022 10:03
[2022-08-19 11:21] VITALS: BP 133/77
== END 2022-08-19 11:00 | disposition home or self-care (01) | DRG 470 ==
LOC: SDC 08:08 → EDSTATUS 09:50 → 4TH 13:20
PROVIDERS: ADMIT Orthopaedic Surgery; ATTEND Orthopaedic Surgery
PROC: 0SRC0JA Replacement of Right Knee Joint with Synthetic Substitute, Uncemented, Open Approach (ICD-10-PCS; principal; 2022-08-17 09:48)
DX: M17.11 Unilateral primary osteoarthritis, right knee (principal); I10 Essential (primary) hypertension; E11.9 Type 2 diabetes mellitus without complications; K21.9 Gastro-esophageal reflux disease without esophagitis
CPT/HCPCS: 36415; 73560; 82947; 85014; 85018; 87081; 94664

== ENCOUNTER → 2022-09-08 | Outpatient (CLI) | payer OTHER ==
[~2022-09-08] MED LIST changes: +ASPI-1238 PO; +OXC5T PO
== END ==
LOC: ORTHO 10:22
PROVIDERS: ATTEND Orthopaedic Surgery
DX: Z98.890 Other specified postprocedural states (principal); M17.0 Bilateral primary osteoarthritis of knee; E11.9 Type 2 diabetes mellitus without complications; K21.9 Gastro-esophageal reflux disease without esophagitis; I10 Essential (primary) hypertension

== ENCOUNTER → 2022-09-16 | Outpatient (CLI) | payer OTHER | LOC: ORTHO 09:19 | PROVIDERS: ATTEND Orthopaedic Surgery | DX: Z47.89 Encounter for other orthopedic aftercare (principal) ==

== ENCOUNTER → 2022-09-30 | Outpatient (CLI) | payer OTHER ==
--- NOTE | 2022-09-30 08:32 | Diagnostic Imaging Report ---
EXAMINATION: Right knee radiograph TECHNIQUE: AP and lateral views of the right knee obtained. HISTORY: PAIN OF RIGHT KNEE JOINT COMPARISON: Right knee radiograph 08/17/2022 FINDINGS: Well aligned total right knee arthroplasty. No acute osseous findings. Joint effusion. Normal soft tissues. No unexpected radiopaque foreign body. IMPRESSION: Well aligned total right knee arthroplasty. Joint effusion. Dictated by: Dictated on workstation # [id number]
== END ==
LOC: ORTHO 08:17
PROVIDERS: ATTEND Orthopaedic Surgery
DX: Z96.651 Presence of right artificial knee joint (principal)
CPT/HCPCS: 73560

== ENCOUNTER → 2022-10-26 | Outpatient (CLI) | payer OTHER ==
--- NOTE | 2022-10-26 08:39 | Diagnostic Imaging Report ---
PROCEDURE: CT left lower extremity without contrast. TECHNIQUE: Multiple contiguous axial images were obtained through the left lower extremity without the use of intravenous contrast. Sagittal and coronal reformations were then performed. Auto Exposure Controls were utilized during the CT exam to meet ALARA standards for radiation dose reduction. INDICATION: Osteoarthritis, pain COMPARISON: 08/04/2022 FINDINGS: No acute fracture or dislocation. No destructive osseous process. Mild degenerative changes of the left hip with mild joint space narrowing and minimal osteophyte formation. No large-volume left hip joint effusion. No significant free fluid or free air within the minimally visualized pelvis. Severe joint space narrowing within the medial compartment of the left knee is noted with mild lateral joint space narrowing. There is sclerosis of the articular surfaces within the medial compartment with associated mild osteophyte formation. Mild spurring of the tibial spine. Mild narrowing of the lateral patellofemoral joint space. No significant knee joint effusion. No large ankle joint effusion. No acute fracture involving the ankle. IMPRESSION: No acute osseous abnormality with significant degenerative changes involving the left knee, particularly within the medial compartment. Dictated by: Dictated on workstation # [id number]
== END ==
LOC: RAD 07:45
PROVIDERS: ATTEND Orthopaedic Surgery
DX: M17.12 Unilateral primary osteoarthritis, left knee (principal)
CPT/HCPCS: 73700

== ENCOUNTER → 2022-10-28 | Outpatient (CLI) | payer OTHER | LOC: ORTHO 10:03 | PROVIDERS: ATTEND Orthopaedic Surgery | DX: M17.12 Unilateral primary osteoarthritis, left knee (principal); E11.9 Type 2 diabetes mellitus without complications; K21.9 Gastro-esophageal reflux disease without esophagitis; I10 Essential (primary) hypertension ==

== ENCOUNTER 2022-11-03 08:11 | Outpatient (CLI) | payer OTHER ==
[~2022-11-03] VITALS: Ht 177.8 cm; Wt 116.4 kg
[2022-11-03 09:12] LABS: BILIRUBIN,URINE NEGATIVE (NEGATIVE); CLARITY,URINE CLEAR; COLOR,URINE YELLOW; GLUCOSE, URINE (UA) NEGATIVE (NEGATIVE); KETONES,URINE NEGATIVE (NEGATIVE); LEUKOCYTE ESTERASE ,URINE NEGATIVE (NEGATIVE); NITRITE,URINE NEGATIVE (NEGATIVE); PH,URINE 7.5 (5-9); PROTEIN,URINE NEGATIVE (NEGATIVE)
[2022-11-03 09:25] LABS: BACTERIA,URINE NEGATIVE /HPF
[2022-11-03 09:33] VITALS: BP 143/101
[2022-11-03 09:38] LABS: BASOPHILS % (AUTO) 1 % (0-10); EOSINOPHILS # (AUTO) 0.1 10^3/uL (0.0-0.3); EOSINOPHILS % (AUTO) 2 % (0-10); HEMATOCRIT 40 % (40-54); HEMOGLOBIN 13.6 g/dL (13.3-17.7); LYMPHOCYTES # (AUTO) 0.8 10^3/uL (1.0-4.0); LYMPHOCYTES % (AUTO) 13 % (12-44); MEAN CORPUSCULAR HEMOGLOBIN 30 pg (25-34); MEAN CORPUSCULAR HGB CONC 34 g/dL (32-36); MEAN CORPUSCULAR VOLUME 87 fL (80-99); MEAN PLATELET VOLUME 9.4 fL (9.0-12.2); MONOCYTES # (AUTO) 0.7 10^3/uL (0.0-1.0); MONOCYTES % (AUTO) 11 % (0-12); NEUTROPHILS # (AUTO) 4.3 10^3/uL (1.8-7.8); NEUTROPHILS % (AUTO) 73 % (42-75); PLATELET COUNT 298 10^3/uL (130-400); WHITE BLOOD COUNT 5.8 10^3/uL (4.3-11.0)
[2022-11-03 09:55] LABS: CALCIUM 9.9 MG/DL (8.5-10.1); CREATININE SERUM 0.83 MG/DL (0.60-1.30); POTASSIUM 3.4 MMOL/L (3.6-5.0)
== END 2022-11-03 09:36 ==
LOC: PREOP 08:11
PROVIDERS: ATTEND Orthopaedic Surgery
DX: Z01.818 Encounter for other preprocedural examination (principal)
CPT/HCPCS: 36415; 80048; 81000; 85025; 87081

== ENCOUNTER 2022-11-09 06:09 | Day surgery (SDC) | payer OTHER ==
[2022-11-09] VITALS (12 sets, daily range): BP systolic 109–181; BP diastolic 71–95
[~2022-11-09] VITALS: Ht 175.3 cm; Wt 119.4 kg
[~2022-11-09 06:09] MED LIST changes: -FLUT9.9S NS; +FLUT9.9S NSEACH
[2022-11-09] MEDS: LACTATED RINGERS 1,000 ML IV PRN ×2 (06:30→08:45)
[2022-11-09] MEDS ORDERED: ceFAZolin INJECTION 2,000 MG ONE (06:54)
[2022-11-09] MEDS ORDERED: NS (IVPB) 50 ML ONE (06:55)
[2022-11-09] MEDS ORDERED: PROPOFOL INJECTION 50 ML IV ONE ×2 (06:59→08:06)
[2022-11-09] MEDS ORDERED: fentaNYL INJ 100 MCG/2 ML AMP ONE (06:59)
[2022-11-09] MEDS ORDERED: BUPIVACAINE 0.5% 30 ML (SENSORCAINE) VIAL ONE (06:59)
[2022-11-09] MEDS ORDERED: MIDAZOLAM 2 MG/2 ML (VERSED) VIAL ONE (06:59)
[2022-11-09] MEDS ORDERED: ceFAZolin INJECTION 2,000 MG in NS (IVPB) 50 ML IV ONE (07:00)
--- NOTE | 2022-11-09 07:03 | Progress Note-Pre Operative ---
Pre-Operative Progress Note Date of Available H&P: October 28, 2022 Date H&P Reviewed: November 09, 2022 Time H&P Reviewed: 06:55 History & Physical: H&P Reviewed, Patient Examed, No changes noted Pre-Operative Diagnosis: Left Knee Primary Osteoarthritis MARIUM CULLEN MD November 09, 2022 07:03
[2022-11-09] MEDS ORDERED: proPOfol 200 MG/20 ML (DIPRIVAN) VIAL IV ONE (09:28)
[2022-11-09] MEDS ORDERED: LACTATED RINGERS 1,000 ML IV PRN (09:45)
--- NOTE | 2022-11-09 10:21 | Operative Report - Ortho ---
Operative Report Surgeon (s)/Manual Equipment Mechanic (s) Surgeon MARIUM CULLEN MD Manual Equipment Mechanic n/a Pre-Operative Diagnosis Left Knee Primary Osteoarthritis Post-Operative Diagnosis same Operative Report Date of Procedure: November 09, 2022 Name of Procedure Performed: Robotic Assisted Left Total Knee Arthroplasty Description & Findings After obtaining informed consent and marking the patient in the preoperative holding area, the patient did receive IV antibiotics. Patient was taken to the operating room and anesthesia was induced. Surgical timeout was taken. The left lower extremity was prepped and draped in the usual sterile fashion. Incision was made and carried down to fascia. Arthrotomy was performed on the medial side of the patella. Patella was retracted laterally and knee was flexed. Found to have circumferential osteophtye around the distal femur as well as exposed bone in the medial compartment. ACL and anterior horns of the menisci were removed. 3.2 mm pins were placed in the medial femoral condyle for the femoral array and checkpoint was placed next to the pins. 3.2 mm pins were placed in the proximal tibia and checkpoint was placed there as well. Arrays were placed and tightened into position. The femur and tibia were then registered. Osteophytes were removed. The knee was then tensioned with varus and valgus stress in extension and flexion. Measurements were captured and adjustments were made to the preoperative plan to balance the flexion and extension gaps. Robotic arm was brought into position and all femoral cuts as well as the tibial cut were performed. Bone blocks were removed. [place]ina waterproofer helper was placed and the remainder of the mensici as well as posterior osteophytes were removed. The knee was trialed with a size 6 femur and a size 5 tibia with a 9 mm poly trial. It was found to come out to full extension and flexed beyond 120 degrees. It was stable to varus and valgus stress throughout its range of motion. This was accepted. Knee was brought out into extension and the patella was prepared for an inset patellar button. Osteophytes were removed from around the perimeter of the patella. Patellar component tracked well through the trochlear groove of the femur. Lug holes were drilled in the distal femur. Trial implants were removed. Tibial tray was pinned and punched. Press fit guide was placed on the tibia and holes were drilled. The cut bone surfaces were lavaged with pulsatile normal saline. Cement was mixed. Implants were opened and assembled on the back table. A size 5 press fit tibial component was impacted into place. Cement was applied to the cut bone surface of the femur. A size 6 femoral component was impacted into place and excess cement was removed using a freer. Tibial tray was lavaged with saline. A 9 mm thick polyethylene component was locked into placed and the locking mechanism was checked. Knee was brought into extension. Press fit patellar component was clamped into position. Betadine soak was performed and then, the knee was irrigated with normal saline. The knee was once again trialed; found to come to full extension, flexed beyond 120 degrees, and was stable to varus and valgus stress. Tourniquet was dropped and electrocautery was used for hemostasis. Fascial layer was closed with #2 Stratafix. The subcutaneous layer was closed with 2-0 Vicryl. The skin was closed with 3-0 V-loc. Wound was dressed with steri-strips, xeroform, 4x4s, ABD, webril, and CÉSAR wrap. Patient tolerated the procedure well and was stable to the recovery room. Anesthesia Type Spinal Estimated Blood Loss 150 mL Specimen(s) collected/removed none MARIUM CULLEN MD November 09, 2022 10:21
[2022-11-09] MEDS ORDERED: ONDANSETRON 4 MG/2 ML (SDV) Z0FRAN IVP PRN (10:30)
[2022-11-09] MEDS ORDERED: MILK OF MAGNESIA 400 MG/5 ML 30 ML UDC PO PRN (10:30)
[2022-11-09] MEDS ORDERED: BISACODYL 5 MG (DULCOLAX) TABLET PO PRN (10:30)
[2022-11-09] MEDS ORDERED: HYDROmorphone 2 MG/ML VIAL (DILAUDID) IV ONE (10:30)
[2022-11-09] MEDS ORDERED: morphine INJ 10 MG/ML 1ML (SYR OR VIAL) IVP ONE (10:30)
[2022-11-09] MEDS ORDERED: PROMETHAZINE INJ 25 MG/ML (PHENERGAN) AMP IVP ONE (10:30)
[2022-11-09] MEDS ORDERED: ACETAMINOPHEN 500 MG TAB (TYLENOL) PO PRN (10:30)
--- NOTE | 2022-11-09 12:37 | Diagnostic Imaging Report ---
KNEE, LEFT, 2 VIEWS (AP LAT) INDICATION: Immediate postop after total knee arthroplasty. COMPARISON: None available. TECHNIQUE: 2 views of left knee FINDINGS: Total knee arthroplasty with patellar resurfacing has components in good alignment. No acute periprosthetic fracture. Expected postoperative fluid and gas. IMPRESSION: Expected postoperative appearance following total knee arthroplasty. Dictated by: Dictated on workstation # [id number]
[2022-11-09] MEDS: NS IV 1000 ML 1,000 ML IV SCH ×2 (12:50→19:47)
[2022-11-09] MEDS: morphine INJ 4 MG/ML 1 ML (VIAL/SYRINGE) IVP PRN ×3 (13:33→23:53)
[2022-11-09] MEDS: ONDANSETRON 4 MG/2 ML (SDV) Z0FRAN IV PRN ×2 (13:33→19:47)
--- NOTE | 2022-11-09 14:06 | Physical Therapy Evaluation ---
PT Evaluation-General Medical Diagnosis Admission Date November 092022 Medical Diagnosis: left knee OA Onset Date: November 09, 2022 Therapy Diagnosis Therapy Diagnosis: impaired mobility Height/Weight Height (Feet): 5 Height (Inches): 10.00 Weight (Pounds): 260 Weight (Ounces): 0.0 Precautions Precautions/Isolations: Fall Prevention, Standard Precautions Weight Bear Status Right Lower Extremity: Right Full Weight Bearing Left Lower Extremity: Left Weight Bearing/Tolerated Referral Physician: Jamil Reason for Referral: Evaluation/Treatment Medical History Pertinent Medical History: Arthritis Additional Medical History right TKR Current History s/p elective left TKR Reviewed History: Yes Social History Home: Single Level Current Living Status: Spouse Entry Into Home: Ramp Prior Prior Level of Function SCALE: Activities may be completed with or without assistive devices. 0-Wgytlhbhap-exjmeby completes the activity by him/herself with no assistance from a helper. 5-Set-up or Clean-up Assistance-helper sets up or cleans up; patient completes activity. [place] assists only prior to or following the activity. 4-Supervision or Touching Assistance-helper provides verbal cues and/or touching/steadying and/or contact guard assistance as patient completes activity. Assistance may be provided throughout the activity or intermittently. 3-Partial/Moderate Assistance-helper does LESS THAN HALF the effort. [place] lifts, holds or supports trunk or limbs, but provides less than half the effort. 2-Substantial/Maximal Assistance-helper does MORE THAN HALF the effort. [place] lifts or holds trunk or limbs and provides more than half the effort. 4-Ehvyqssee-fbtene does ALL the effort. Patient does none of the effort to complete the activity. Or, the assistance of 2 or more helpers is required for the patient to complete the activity. If activity was not attempted, code reason: 7-Patient Refused. 9-Not Applicable-not attempted and the patient did not perform the activity before the current illness, exacerbation or injury. 10-Not Attempted due to Environmental Limitations-(lack of equipment, weather restraints, etc.). 88-Not Attempted due to Medical Conditions or Safety Concerns. Bed Mobility: 6 Transfers (B,C,W/C): 6 Gait: 6 Stairs: 6 Indoor Mobility (Ambulation): Independent Stairs: Independent PT Evaluation-Current Subjective Patient agrees to PT. C/o thigh pain. Objective Patient Orientation: Normal For Age Attachments: Carter Catheter, IV ROM/Strength ROM Lower Extremities right LE WFL/left knee flexion 70 degrees flexion/10 degrees extension Strength Lower Extremities right LE 5/5/left LE 3/5 grossly Integumentary/Posture Bladder Incontinence: Carter Cath Posture WFL Neuromuscular (Tone, Coordination, Reflexes) grossly intact Sensory Vision: Functional Hearing: Functional Transfers Sit to Lying (QC): 3 Lying to Sitting/Side of Bed(Q: 3 Sit to Stand (QC): 4 Gait Mode of Locomotion: Walk Anticipated Mode of Locomotion: Walk Walk 10 feet (QC): 4 Walk 50 ft with 2 Turns(QC): 88 Walk 150 ft (QC): 88 Distance: 10' x 2 Gait Assistive Device: FWW Comments/Gait Description slow, antalgic Balance Sitting Static: Normal Sitting Dynamic: Normal Standing Static: Normal Standing Dynamic: Normal Assessment/Needs Patient will benefit from skilled PT to address functional strength and mobility to improve current LOF. Patient has c/o dizziness due to Morphine injection. PT to increase activity as tolerated by patient. Rehab Potential: Good PT Phonograph Needle Tip Maker Goals Phonograph Needle Tip Maker Goals PT Residential Goals Time Frame: November 14, 2022 Roll Left & Right (QC): 6 Sit to Lying (QC): 6 Lying-Sitting on Side/Bed(QC): 6 Sit to Stand (QC): 6 Chair/Ygb-cr-Exwce Xfer(QC): 6 Toilet Transfer (QC): 6 Walk 10 feet (QC): 6 Walk 50ft with 2 Turns (QC): 6 Walk 150 ft (QC): 6 PT Plan Problem List Problem List: Gait, Transfer, Bed Mobility, ROM Treatment/Plan Treatment Plan: Continue Plan of Care Treatment Plan: Bed Mobility, Education, Functional Activity Marii, Functional Strength, Gait, Safety, Therapeutic Exercise, Transfers Treatment Duration: November 14, 2022 Frequency: 11 times per week Estimated Hrs Per Day: .5 hour per day Patient and/or Family Agrees t: Yes Time Time In: 1340 Time Out: 1355 DATE: November 09, 2022 Total Billed Treatment Time: 15 Total Billed Treatment 1 visit EVModC 15 min ZOYA VORA PT November 09, 2022 14:06
[2022-11-09] MEDS ORDERED: BENA-3 PO (15:04)
[2022-11-09] MEDS ORDERED: HYDR25TA4 PO (15:04)
[2022-11-09] MEDS ORDERED: ACET-93 PO (15:04)
[2022-11-09] MEDS ORDERED: IBUP-2185 PO (15:04)
[2022-11-09] MEDS ORDERED: ASPI-1238 PO (15:04)
[2022-11-09] MEDS ORDERED: METF-399 PO (15:04)
[2022-11-09] MEDS ORDERED: MULT-1136 PO (15:05)
[2022-11-09] MEDS: ASPIRIN E.C. 81 MG (ECOTRIN) TAB PO SCH (16:36)
[2022-11-09] MEDS: amLODIPine 10 MG (NORVASC) TAB PO SCH (16:36)
[2022-11-09] MEDS: CELECOXIB 100 MG (CeleBREX) CAP PO SCH (21:18)
[2022-11-09] MEDS: DOCUSATE SODIUM 100 MG (COLACE) CAP PO SCH (21:18)
[2022-11-09] MEDS: ceFAZolin INJECTION 2,000 MG in NS (IVPB) 50 ML IV SCH (21:19)
[2022-11-10 04:22] VITALS: BP 156/80
[2022-11-10] MEDS: ceFAZolin INJECTION 2,000 MG in NS (IVPB) 50 ML IV SCH (04:24)
[2022-11-10] MEDS: morphine INJ 4 MG/ML 1 ML (VIAL/SYRINGE) IVP PRN (04:38)
[2022-11-10 05:43] LABS: HEMOGLOBIN 11.7 g/dL (13.3-17.7)
[2022-11-10] MEDS: NS IV 1000 ML 1,000 ML IV SCH (06:12)
[2022-11-10] MEDS: MULTIVIT W/MINERALS TAB (THERAGRAN M) PO SCH (06:12)
[2022-11-10 07:06] VITALS: BP 169/87
--- NOTE | 2022-11-10 08:03 | Physical Therapy Daily Note ---
PT Daily Note-Current Subjective Patient reports he had a "rough night". Agrees to PT. Pain Numeric Pain Scale: 8 Location: Left Location Body Site: Knee Pain Description: Acute Section J - Health Conditions 1. Rarely or not at all 2. Occasionally 3. Frequently 4. Almost constantly 8. Unable to answer Pain Effect on Sleep: 4 Pain Interference with Therapy: 1 Pain Interference w/Day-to-Day: 2 Mental Status Patient Orientation: Normal For Age Attachments: Polar Pack, IV Transfers SCALE: Activities may be completed with or without assistive devices. 3-Csqqfcnpad-cwdfeae completes the activity by him/herself with no assistance from a helper. 5-Set-up or Clean-up Assistance-helper sets up or cleans up; patient completes activity. [place] assists only prior to or following the activity. 4-Supervision or Touching Assistance-helper provides verbal cues and/or touching/steadying and/or contact guard assistance as patient completes activity. Assistance may be provided throughout the activity or intermittently. 3-Partial/Moderate Assistance-helper does LESS THAN HALF the effort. [place] lifts, holds or supports trunk or limbs, but provides less than half the effort. 2-Substantial/Maximal Assistance-helper does MORE THAN HALF the effort. [place] lifts or holds trunk or limbs and provides more than half the effort. 4-Obnelucap-fcvfak does ALL the effort. Patient does none of the effort to complete the activity. Or, the assistance of 2 or more helpers is required for the patient to complete the activity. If activity was not attempted, code reason: 7-Patient Refused. 9-Not Applicable-not attempted and the patient did not perform the activity before the current illness, exacerbation or injury. 10-Not Attempted due to Environmental Limitations-(lack of equipment, weather restraints, etc.). 88-Not Attempted due to Medical Conditions or Safety Concerns. Lying to Sitting/Side of Bed(Q: 3 Sit to Stand (QC): 4 Chair/Hvq-go-Xtohj Xfer(QC): 4 Weight Bearing Right Lower Extremity: Right Full Weight Bearing Left Lower Extremity: Left Weight Bearing/Tolerated Gait Training Distance: 125' Walk 10 feet (QC): 4 Walk 50 ft with 2 Turns(QC): 4 Walk 150 ft (QC): 4 Gait Assistive Device: FWW slow, antalgic Exercises Supine Ex: Ankle pumps, Quad Set, Heel Slides, Straight leg raise Supine Reps: 12 (AAROM left LE) Seated Therapy Exercises: Long arc quads Seated Reps: 12 (AAROM left LE) Assessment Patient currently limited by pain. RN notified. Patient tolerated treatment and is up in recliner with breakfast in situ. PT to increase activity as tolerated by patient. PT Property Custodian Goals Halfway Goals PT Property Custodian Goals Time Frame: November 14, 2022 Roll Left & Right (QC): 6 Sit to Lying (QC): 6 Lying-Sitting on Side/Bed(QC): 6 Sit to Stand (QC): 6 Chair/Hqb-yz-Jafub Xfer(QC): 6 Toilet Transfer (QC): 6 Walk 10 feet (QC): 6 Walk 50ft with 2 Turns (QC): 6 Walk 150 ft (QC): 6 PT Plan Treatment/Plan Treatment Plan: Continue Plan of Care Treatment Plan: Bed Mobility, Education, Functional Activity Marii, Functional Strength, Gait, Safety, Therapeutic Exercise, Transfers Treatment Duration: November 14, 2022 Frequency: 11 times per week Estimated Hrs Per Day: .5 hour per day Patient and/or Family Agrees t: Yes Time Time In: 738 Time Out: 802 DATE: November 10, 2022 Total Billed Treatment Time: 24 Total Billed Treatment 1 visit EX 13 min GT 11 min ZOYA VORA PT November 10, 2022 08:03
[2022-11-10] MEDS: lisINopril 40 MG (PRINIVIL) TABLET PO SCH (08:13)
[2022-11-10] MEDS: FLUTICASONE NASAL SPRAY (FLONASE) 16 GM BTL NS SCH (08:14)
[2022-11-10] MEDS: PANTOPRAZOLE 40 MG (PROTONIX) TAB PO SCH (08:14)
[2022-11-10] MEDS: CELECOXIB 100 MG (CeleBREX) CAP PO SCH ×2 (08:14→19:26)
[2022-11-10] MEDS: ASPIRIN E.C. 81 MG (ECOTRIN) TAB PO SCH ×2 (08:14→17:29)
[2022-11-10] MEDS: DOCUSATE SODIUM 100 MG (COLACE) CAP PO SCH ×2 (08:14→19:27)
--- NOTE | 2022-11-10 08:20 | Progress Note - Ortho ---
Progress Note Subjective Date of Exam 11/10/22 Chief Complaint POD #1 L TKA HPI/Events since last exam having some difficulty with pain, back spasms, has been up with therapy Review of Systems - Allergies: Coded Allergies: No Known Drug Allergies (Unverified , 11/03/22) Home Meds Reported Medications Multivitamin (Multivitamin) 1 Each Tablet, 1 EACH PO DAILY, TAB 11/09/22 Aspirin (Aspirin EC) 81 Mg Tablet.dr, 81 MG PO DAILY, TAB 11/09/22 Metformin HCl (Metformin HCl) 1,000 Mg Tablet, 2000 MG PO 1800, TAB TAKES 2 (1000MG) TABS 11/09/22 Benazepril HCl (Benazepril HCl) 20 Mg Tablet, 40 MG PO DAILY, TAB TAKES 2 (20MG) TABS 11/09/22 Hydrochlorothiazide (Hydrochlorothiazide) 25 Mg Tablet, 50 MG PO DAILY, TAB TAKES 2 (25MG) TABS 11/09/22 Ibuprofen (Ibuprofen) 200 Mg Capsule, 800 MG PO Q8H PRN for PAIN-MILD (1-4), CAP 11/09/22 Acetaminophen (Acetaminophen) 500 Mg Tablet, 1000 MG PO Q8H PRN for PAIN-MILD (1-4), TAB 11/09/22 Fluticasone Propionate (Flonase Allergy Relief) 50 Mcg/Actuation [place].susp, 2 SPRAY NSEACH DAILY, EACH 08/10/22 Diphenhydramine HCl (Diphenhydramine HCl) 25 Mg Tablet, 25-50 MG PO Q8H PRN for ALLERGY SYMPTOMS, TAB 08/10/22 Amlodipine Besylate (Amlodipine Besylate) 10 Mg Tablet, 10 MG PO 1800, TAB 08/10/22 Pantoprazole Sodium (Pantoprazole Sodium) 40 Mg Tablet.dr, 40 MG PO DAILY, TAB 02/24/17 Discontinued Reported Medications Ibuprofen (Ibuprofen) Unknown Strength Tablet, PO Q6H PRN for PAIN-MILD, TAB 08/10/22 Acetaminophen (Acetaminophen ER) Unknown Strength Tablet.er, PO, TAB 08/10/22 Metformin HCl (Metformin HCl) 1,000 Mg Tablet, 2000 MG PO with supper, TAB take 2 (1000mg) tabs 02/24/17 Benazepril/Hydrochlorothiazide (Benazepril-Hctz 20-25 mg Tab) 20 Mg-25 Mg Tablet, 2 EACH PO DAILY, TAB 02/24/17 Discontinued Scripts Aspirin (Aspirin EC) 81 Mg Tablet.dr, 81 MG PO BID WITH MEALS for 14 Days, #28 TAB 0 Refills Prov:MARIUM CULLEN MD 08/19/22 Oxycodone Hcl (OXYIR TABLET) 5 Mg Tab, 5 MG PO Q4H PRN for PAIN-SEVERE (8-10) for 7 Days, #42 TAB 0 Refills Prov:MARIUM CULLEN MD 08/19/22 Objective Exam L Knee: Dressing C/D/I, +DF of ankle, no s/s of DVT Vital Signs Vital Signs Date Time Temp Pulse Resp B/P (MAP) Pulse Ox O2 Delivery O2 Flow Rate FiO2 11/10/22 07:06 36.4 79 18 169/87 (114) 95 Room Air 11/10/22 04:22 36.7 79 18 156/80 (105) 96 Room Air 11/09/22 23:55 37.0 93 18 157/87 (110) 94 Room Air 11/09/22 19:45 Room Air 11/09/22 19:32 37.3 88 18 173/95 (121) 95 Room Air 11/09/22 16:01 37.3 83 18 181/93 (122) 93 Room Air 11/09/22 11:39 95 Room Air 11/09/22 11:38 36.6 53 18 143/80 (101) 95 Room Air 11/09/22 11:36 36.6 53 18 143/80 (101) 95 Room Air 11/09/22 11:00 36.4 12 145/88 (107) 97 Room Air 11/09/22 11:00 Room Air 11/09/22 10:50 18 142/86 (104) 97 Room Air 11/09/22 10:48 Room Air 11/09/22 10:44 Room Air 11/09/22 10:41 Room Air 11/09/22 10:40 18 135/90 (105) 94 Room Air 11/09/22 10:30 Room Air 11/09/22 10:30 18 131/89 (103) 94 Room Air 11/09/22 10:20 18 121/83 (96) 93 Room Air 11/09/22 10:15 Room Air 11/09/22 10:08 36.1 16 109/71 (84) 95 Room Air 11/09/22 10:08 Room Air I & O 11/10/22 07:00 Intake Total 2750 ml Output Total 2925 ml Balance -175 ml Lab Results Laboratory Tests 11/10/22 05:08: Hemoglobin 11.7L, Hematocrit 34L Imaging 2 postop views of the left knee dated 11/09/22 were reviewed from PACS and demonstrated total knee arthroplasty with components in good position, no complications noted Assessment and Plan Assessment Left Knee Primary OA s/p TKA Problem List Left Knee Primary OA s/p TKA Plan PT/OT DVT Prophylaxis Home with outpatient therapy tomorrow Final Diagonsis Left Knee Primary OA s/p TKA Level of the visit: Level 3 (postop global) MARIUM CULLEN MD November 10, 2022 08:20
--- NOTE | 2022-11-10 08:44 | Anesthesia-Regional Post-Op ---
Regional Patient Condition Mental Status: Alert, Oriented x3 Circulation: Same as Pre-Op Headache: Absent Sensation: Full Recovery Motor Block: Absent Post Op Complications Complications None Follow Up Care/Instructions Patient Instructions None needed. Anesthesia/Patient Condition Patient is doing well, no complaints, stable vital signs, no apparent adverse anesthesia problems. No complications reported per nursing. [place] home [place] [facility] [place]: Yes TERRENCE RAE CRNA November 10, 2022 08:44
[2022-11-10] MEDS ORDERED: BENAZEPRIL PO SCH (09:00)
[2022-11-10] MEDS ORDERED: [UNRECOGNIZED DRUG - OTHER] PO SCH (09:00)
[2022-11-10] MEDS ORDERED: HYDROCHLOROTHIAZIDE PO SCH (09:00)
[2022-11-10] MEDS: CYCLOBENZAPRINE 10 MG (FLEXERIL) TAB PO PRN ×3 (09:50→20:36)
[2022-11-10 11:16] VITALS: BP 153/79
--- NOTE | 2022-11-10 13:17 | Occupational Therapy Eval ---
OT Evaluation-General/PLF Medical Diagnosis Admission Date Medical Diagnosis: left knee OA Onset Date: November 09, 2022 Therapy Diagnosis Therapy Diagnosis: weakness, need for assistance w/ ADLS Height/Weight Height (Feet): 5 Height (Inches): 10.00 Weight (Pounds): 260 Weight (Ounces): 0.0 Precautions Precautions/Isolations: Standard Precautions Weight Bear Status Weight Bearing Restriction: Weight Bearing/Tolerated Location Restriction: L LE Referral Physician: Jamil Referral Reason: Self Care, Evaluation/Treatment Medical History Pertinent Medical History: Arthritis Current History s/p LTKA, RTKA 12 weeks ago Reviewed History: Yes Social History Home: Single Level Current Living Status: Spouse Entry Into Home: Ramp ADL-Prior Level of Function SCALE: Activities may be completed with or without assistive devices. 4-Rovxghtngg-ohfrqnj completes the activity by him/herself with no assistance from a helper. 5-Set-up or Clean-up Assistance-helper sets up or cleans up; patient completes activity. [place] assists only prior to or following the activity. 4-Supervision or Touching Assistance-helper provides verbal cues and/or touching/steadying and/or contact guard assistance as patient completes activity. Assistance may be provided throughout the activity or intermittently. 3-Partial/Moderate Assistance-helper does LESS THAN HALF the effort. [place] lifts, holds or supports trunk or limbs, but provides less than half the effort. 2-Substantial/Maximal Assistance-helper does MORE THAN HALF the effort. [place] lifts or holds trunk or limbs and provides more than half the effort. 9-Txdrrmkva-ccbrod does ALL the effort. Patient does none of the effort to complete the activity. Or, the assistance of 2 or more helpers is required for the patient to complete the activity. If activity was not attempted, code reason: 7-Patient Refused. 9-Not Applicable-not attempted and the patient did not perform the activity before the current illness, exacerbation or injury. 10-Not Attempted due to Environmental Limitations-(lack of equipment, weather restraints, etc.). 88-Not Attempted due to Medical Conditions or Safety Concerns. 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 Self Care: Independent Functional Cognition: Independent Drive Self: Yes OT Current Status Subjective Patient is agreeable to OT Mental Status/Objective Patient Orientation: Person, Place, Time, Situation Attachments: IV, Polar Pack Current Upper Extremity ROM BUE ROM WFLS Upper Extremity Coordination intact Upper Extremity Sensation intact ADL-Treatment Eating (QC): 6 Oral Hygiene (QC): 5 Shower/Bathe Self (QC): 7 Upper Body Dressing (QC): 5 Lower Body Dressing (QC): 4 On/Off Footwear (QC): 4 Toileting Hygiene (QC): 5 Education OT Patient Education: Correct positioning, Modified ADL techniques, Progress toward Goal/Update tx plan, Purpose of tx/functional activities, Reviewed precautions, Rehab process, Safety issues, Transfer techniques, Use of adapted equipment Teaching Recipient: Patient Teaching Methods: Demonstration Response to Teaching: Return Demonstration, Reinforcement Needed OT Supervisor Pleating Goals Supervisor Pleating Goals Eating (QC): 6 Oral Hygiene (QC): 6 Toileting Hygiene (QC): 6 Shower/Bathe Self (QC): 6 Upper Body Dressing (QC): 6 Lower Body Dressing (QC): 6 On/Off Footwear (QC): 6 1=Demonstrate adherence to instructed precautions during ADL tasks. 2=Patient will verbalize/demonstrate understanding of assistive devices/modifications for ADL. 3=Patient will improve strength/tolerance for activity to enable patient to perform ADL's. OT Education/Plan Problem List/Assessment Assessment: Decreased Activ Tolerance, Impaired Self-Care Skills Discharge Recommendations Plan/Recommendations: Continue POC Treatment Plan/Plan of Care Treatment,Training & Education: Yes Patient would benefit from OT for education, treatment and training to promote independence in ADL's, mobility, safety and/or upper extremity function for AD L's. Plan of Care: ADL Retraining, Functional Mobility, Group Exercise/Act as Ind, UE Funct Exercise/Act Treatment Duration: November 14, 2022 Frequency: 3 times per week Estimated Hrs Per Day: .25 hour per day Rehab Potential: Good Time Start Time: 15:30 Stop Time: 15:45 DATE: November 11, 2022 Total Time Billed (hr/min): 15 Billed Treatment Time EVM 15 min SELINA SARABIA OT November 10, 2022 13:17
--- NOTE | 2022-11-10 14:09 | Physical Therapy Daily Note ---
PT Daily Note-Current Subjective Patient agrees to PT. Pain Section J - Health Conditions 1. Rarely or not at all 2. Occasionally 3. Frequently 4. Almost constantly 8. Unable to answer Pain Effect on Sleep: 4 Pain Interference with Therapy: 1 Pain Interference w/Day-to-Day: 2 Mental Status Patient Orientation: Normal For Age Transfers SCALE: Activities may be completed with or without assistive devices. 8-Twubxmclhx-qyusskf completes the activity by him/herself with no assistance from a helper. 5-Set-up or Clean-up Assistance-helper sets up or cleans up; patient completes activity. [place] assists only prior to or following the activity. 4-Supervision or Touching Assistance-helper provides verbal cues and/or touching/steadying and/or contact guard assistance as patient completes activity. Assistance may be provided throughout the activity or intermittently. 3-Partial/Moderate Assistance-helper does LESS THAN HALF the effort. [place] lifts, holds or supports trunk or limbs, but provides less than half the effort. 2-Substantial/Maximal Assistance-helper does MORE THAN HALF the effort. [place] lifts or holds trunk or limbs and provides more than half the effort. 5-Jrglvimjm-mvuwrl does ALL the effort. Patient does none of the effort to complete the activity. Or, the assistance of 2 or more helpers is required for the patient to complete the activity. If activity was not attempted, code reason: 7-Patient Refused. 9-Not Applicable-not attempted and the patient did not perform the activity before the current illness, exacerbation or injury. 10-Not Attempted due to Environmental Limitations-(lack of equipment, weather restraints, etc.). 88-Not Attempted due to Medical Conditions or Safety Concerns. Lying to Sitting/Side of Bed(Q: 6 Sit to Stand (QC): 5 Chair/Gvy-jt-Qgzal Xfer(QC): 5 Weight Bearing Right Lower Extremity: Right Full Weight Bearing Left Lower Extremity: Left Weight Bearing/Tolerated Gait Training Distance: 200' Walk 10 feet (QC): 5 Walk 50 ft with 2 Turns(QC): 5 Walk 150 ft (QC): 5 Gait Assistive Device: FWW slow, antalgic Exercises Supine Ex: Ankle pumps, Quad Set, Heel Slides, Straight leg raise Supine Reps: 12 Seated Therapy Exercises: Long arc quads Seated Reps: 15 Assessment Patient continues to be limited with AROM left knee flexion but improving. Plan dismissal tomorrow after therapy. PT Security Flex Utility Officer Goals Security Flex Utility Officer Goals PT Security Flex Utility Officer Goals Time Frame: November 14, 2022 Roll Left & Right (QC): 6 Sit to Lying (QC): 6 Lying-Sitting on Side/Bed(QC): 6 Sit to Stand (QC): 6 Chair/Qqo-xl-Cqjhw Xfer(QC): 6 Toilet Transfer (QC): 6 Walk 10 feet (QC): 6 Walk 50ft with 2 Turns (QC): 6 Walk 150 ft (QC): 6 PT Plan Treatment/Plan Treatment Plan: Continue Plan of Care Treatment Plan: Bed Mobility, Education, Functional Activity Marii, Functional Strength, Gait, Safety, Therapeutic Exercise, Transfers Treatment Duration: November 14, 2022 Frequency: 11 times per week Estimated Hrs Per Day: .5 hour per day Patient and/or Family Agrees t: Yes Time Time In: 1305 Time Out: 1328 DATE: November 10, 2022 Total Billed Treatment Time: 23 Total Billed Treatment 1 visit EX 12 min GT 11 min ZOYA VORA PT November 10, 2022 14:09
[2022-11-10 15:58] VITALS: BP 171/94
[2022-11-10] MEDS: amLODIPine 10 MG (NORVASC) TAB PO SCH (17:29)
[2022-11-10 19:38] VITALS: BP 143/82
[2022-11-10 23:02] VITALS: BP 148/94
[2022-11-11 05:27] LABS: HEMOGLOBIN 12.2 g/dL (13.3-17.7)
[2022-11-11] MEDS: MULTIVIT W/MINERALS TAB (THERAGRAN M) PO SCH (06:02)
[2022-11-11 07:14] VITALS: BP 143/88
--- NOTE | 2022-11-11 08:20 | Discharge Summary ---
Discharge Summary Hospital Course Hospital Course Date of Admission: 11/09/22 Admission Diagnosis : Left Knee Primary Osteoarthritis Family Physician/Provider: Sidney Celeste MD Date of Discharge: 11/11/22 Discharge Diagnosis: [Left Knee Primary Osteoarthritis s/p TKA ] Hospital Course: [ On 11/09/22, patient underwent left total knee arthroplasty. Tolerated the procedure well and was transferred to the regular floor. On the day of surgery, began mechanical DVT prophylaxis and started to work with therapy. On POD #1, made good progress with therapy and began chemical DVT prophylaxis. On POD #2, continued to make progress with therapy and outpatient therapy arrangements were made. Patient was ready for discharge home.] Labs and Pending Lab Test: Laboratory Tests 11/11/22 05:16: Hemoglobin 12.2L, Hematocrit 35L Microbiology 11/09/22 MRSA Screen - Final, Complete No growth Home Meds Active Reported Multivitamin 1 Each Tablet 1 Each PO DAILY Aspirin EC (Aspirin) 81 Mg Tablet.dr 81 Mg PO DAILY Metformin HCl 1,000 Mg Tablet 2,000 Mg PO 1800 TAKES 2 (1000MG) TABS Benazepril HCl 20 Mg Tablet 40 Mg PO DAILY TAKES 2 (20MG) TABS Hydrochlorothiazide 25 Mg Tablet 50 Mg PO DAILY TAKES 2 (25MG) TABS Ibuprofen 200 Mg Capsule 800 Mg PO Q8H PRN Acetaminophen 500 Mg Tablet 1,000 Mg PO Q8H PRN Flonase Allergy Relief (Fluticasone Propionate) 50 Mcg/Actuation [place].susp 2 [place] NSEACH DAILY Diphenhydramine HCl 25 Mg Tablet 25-50 Mg PO Q8H PRN Amlodipine Besylate 10 Mg Tablet 10 Mg PO 1800 Pantoprazole Sodium 40 Mg Tablet.dr 40 Mg PO DAILY Assessment/Pt Instructions Weightbearing as tolerated on left leg. Walker for assist. Dry dressing daily to left knee incision site. Keep incision site dry. Outpatient therapy for ROM/strengthening/gait training. Follow up in [address] Filipe Negron. Discharge Instructions Discharge Diet: Regular Diet Discharge Physical Examination Vital Signs Vital Signs Date Time Temp Pulse Resp B/P (MAP) Pulse Ox O2 Delivery O2 Flow Rate FiO2 11/11/22 07:14 36.9 104 18 143/88 (106) 95 Room Air Extremity: Other (L Knee: Incision C/D/I, +DF of ankle, no s/s of DVT) Allergies: Coded Allergies: No Known Drug Allergies (Unverified , 11/03/22) Discharge Summary Date of Admission Date of Discharge FILIPE NEGRON MD November 11, 2022 08:20
[2022-11-11] MEDS ORDERED: OXC5T PO (08:24)
[2022-11-11] MEDS ORDERED: CYCL10TA25 PO (08:24)
[2022-11-11] MEDS ORDERED: ASPI-1238 PO (08:24)
[2022-11-11] MEDS: DOCUSATE SODIUM 100 MG (COLACE) CAP PO SCH (09:17)
[2022-11-11] MEDS: ASPIRIN E.C. 81 MG (ECOTRIN) TAB PO SCH (09:17)
[2022-11-11] MEDS: lisINopril 40 MG (PRINIVIL) TABLET PO SCH (09:17)
[2022-11-11] MEDS: FLUTICASONE NASAL SPRAY (FLONASE) 16 GM BTL NS SCH (09:18)
[2022-11-11] MEDS: CELECOXIB 100 MG (CeleBREX) CAP PO SCH (09:18)
[2022-11-11] MEDS: PANTOPRAZOLE 40 MG (PROTONIX) TAB PO SCH (09:18)
--- NOTE | 2022-11-11 10:59 | Physical Therapy Daily Note ---
PT Daily Note-Current Subjective Patient sitting in chair upon PT arrival, agreeable to treatment. Rates pain at 4/10 currently in left knee. Pain Section J - Health Conditions 1. Rarely or not at all 2. Occasionally 3. Frequently 4. Almost constantly 8. Unable to answer Pain Effect on Sleep: 4 Pain Interference with Therapy: 1 Pain Interference w/Day-to-Day: 2 Mental Status Patient Orientation: Person, Place, Time, Situation Transfers SCALE: Activities may be completed with or without assistive devices. 2-Telzzulvra-uqvjfbl completes the activity by him/herself with no assistance from a helper. 5-Set-up or Clean-up Assistance-helper sets up or cleans up; patient completes activity. [place] assists only prior to or following the activity. 4-Supervision or Touching Assistance-helper provides verbal cues and/or touching /steadying and/or contact guard assistance as patient completes activity. Assistance may be provided throughout the activity or intermittently. 3-Partial/Moderate Assistance-helper does LESS THAN HALF the effort. [place] lifts, holds or supports trunk or limbs, but provides less than half the effort. 2-Substantial/Maximal Assistance-helper does MORE THAN HALF the effort. [place] lifts or holds trunk or limbs and provides more than half the effort. 4-Wmomnqkcu-enxuoz does ALL the effort. Patient does none of the effort to complete the activity. Or, the assistance of 2 or more helpers is required for the patient to complete the activity. If activity was not attempted, code reason: 7-Patient Refused. 9-Not Applicable-not attempted and the patient did not perform the activity before the current illness, exacerbation or injury. 10-Not Attempted due to Environmental Limitations-(lack of equipment, weather restraints, etc.). 88-Not Attempted due to Medical Conditions or Safety Concerns. Roll Left & Right (QC): 4 Sit to Lying (QC): 4 Lying to Sitting/Side of Bed(Q: 4 Sit to Stand (QC): 4 Chair/Dwc-bh-Jyslx Xfer(QC): 4 Weight Bearing Right Lower Extremity: Right Full Weight Bearing Left Lower Extremity: Left Weight Bearing/Tolerated Gait Training Walk 10 feet (QC): 4 Walk 50 ft with 2 Turns(QC): 4 Walk 150 ft (QC): 4 Gait Persons Needed: 1 Gait Assistive Device: FWW Exercises Supine Ex: Ankle pumps, Quad Set, Glut sets Supine Reps: 20 Assessment Current Status: Fair Progress Patient tolerated treatment well. Reports he has a ramp at home to enter the house. Patient performs LE therapeutic exercise as listed above. Patient performs all bed mobility and transfers with SBA. Patient ambulates 350 fee with FWW, with SBA and verbal cues for safety, progression, conservation of energy. Patient in chair post treatment with all needs met, nursing notified, call light in hand. PT Alf Goals Alf Goals PT Alf Goals Time Frame: November 14, 2022 Roll Left & Right (QC): 6 Sit to Lying (QC): 6 Lying-Sitting on Side/Bed(QC): 6 Sit to Stand (QC): 6 Chair/Wub-rd-Ojths Xfer(QC): 6 Toilet Transfer (QC): 6 Walk 10 feet (QC): 6 Walk 50ft with 2 Turns (QC): 6 Walk 150 ft (QC): 6 PT Plan Treatment/Plan Treatment Plan: Continue Plan of Care Treatment Plan: Bed Mobility, Education, Functional Activity Marii, Functional Strength, Gait, Safety, Therapeutic Exercise, Transfers Treatment Duration: November 14, 2022 Frequency: 11 times per week Estimated Hrs Per Day: .5 hour per day Patient and/or Family Agrees t: Yes Safety Risks/Education Patient Education: Gait Training, Transfer Techniques Teaching Recipient: Patient Teaching Methods: Demonstration, Discussion Response to Teaching: Verbalize Understanding, Return Demonstration Time Time In: 930 Time Out: 954 DATE: November 11, 2022 Total Billed Treatment Time: 24 Total Billed Treatment Visit, Zeeshan Graham JOHN A PT November 11, 2022 10:59
--- NOTE | 2022-11-11 11:17 | Occupational Ther Daily Note ---
OT Current Status-Daily Note Subjective Agreeable to OT to put on own clothes, planning on leaving today Mental Status/Objective Patient Orientation: Person, Place, Time, Situation ADL-Treatment Therapy Code Descriptions/Definitions Functional [place] Measure: 0=Not Assessed/NA 4=Minimal Assistance 1=Total Assistance 5=Supervision or Setup 2=Maximal Assistance 6=Modified [place] 3=Moderate Assistance 7=Complete IndependenceSCALE: Activities may be completed with or without assistive devices. 9-Vqhsmhwnos-nuqchax completes the activity by him/herself with no assistance from a helper. 5-Set-up or Clean-up Assistance-helper sets up or cleans up; patient completes activity. [place] assists only prior to or following the activity. 4-Supervision or Touching Assistance-helper provides verbal cues and/or touching/steadying and/or contact guard assistance as patient completes activity. Assistance may be provided throughout the activity or intermittently. 3-Partial/Moderate Assistance-helper does LESS THAN HALF the effort. [place] lifts, holds or supports trunk or limbs, but provides less than half the effort. 2-Substantial/Maximal Assistance-helper does MORE THAN HALF the effort. [place] lifts or holds trunk or limbs and provides more than half the effort. 8-Gpcggmrrm-bdrxro does ALL the effort. Patient does none of the effort to complete the activity. Or, the assistance of 2 or more helpers is required for the patient to complete the activity. If activity was not attempted, code reason: 7-Patient Refused. 9-Not Applicable-not attempted and the patient did not perform the activity before the current illness, exacerbation or injury. 10-Not Attempted due to Environmental Limitations-(lack of equipment, weather restraints, etc.). 88-Not Attempted due to Medical Conditions or Safety Concerns. Eating (QC): 6 Oral Hygiene (QC): 6 Shower/Bathe Self (QC): 7 Upper Body Dressing (QC): 6 Lower Body Dressing (QC): 5 On/Off Footwear: 5 Toileting Hygiene (QC): 6 Toilet Transfer (QC): 6 Education OT Patient Education: Correct positioning, Modified ADL techniques, Progress toward Goal/Update tx plan, Purpose of tx/functional activities, Reviewed precautions, Rehab process, Transfer techniques Teaching Recipient: Patient Teaching Methods: Demonstration, Discussion Response to Teaching: Return Demonstration OT Residential Goals Residential Goals 1=Demonstrate adherence to instructed precautions during ADL tasks. 2=Patient will verbalize/demonstrate understanding of assistive devices/modifications for ADL. 3=Patient will improve strength/tolerance for activity to enable patient to perform ADL's. OT Education/Plan Problem List/Assessment Assessment: Decreased Activ Tolerance, Impaired Self-Care Skills (shower) Discharge Recommendations Plan/Recommendations: Continue POC Treatment Plan/Plan of Care Treatment,Training & Education: Yes Patient would benefit from OT for education, treatment and training to promote independence in ADL's, mobility, safety and/or upper extremity function for ADL's. Plan of Care: ADL Retraining, Functional Mobility, Group Exercise/Act as Ind, UE Funct Exercise/Act Treatment Duration: November 14, 2022 Frequency: 3 times per week Estimated Hrs Per Day: .25 hour per day Rehab Potential: Good Return to recliner all needs met Time Start Time: 09:15 Stop Time: 09:27 DATE: November 11, 2022 Total Time Billed (hr/min): 12 Billed Treatment Time ADL 12 min SELINA SARABIA OT November 11, 2022 11:17
== END 2022-11-11 13:10 | disposition home or self-care (01) ==
LOC: SDC 06:09 → 4TH 10:59 → SDC 11-11 13:10
PROVIDERS: ATTEND Orthopaedic Surgery
DX: M17.12 Unilateral primary osteoarthritis, left knee (principal); E66.9 Obesity, unspecified; G89.18 Other acute postprocedural pain; Z68.38 Body mass index [BMI] 38.0-38.9, adult
CPT/HCPCS: 27447; 64447; 73560; 82947; 85014; 85018; 87081; 94664; 97110 ×2; 97116 ×2; 97162; 97166; 97535; C1713 ×3; C1776 ×4; 36415

== ENCOUNTER → 2022-11-25 | Outpatient (CLI) | payer OTHER ==
[~2022-11-25] MED LIST changes: +ACET-93 PO; +BENA-3 PO; +CYCL10TA25 PO; +HYDR25TA4 PO; +IBUP-2185 PO; +MULT-1136 PO
== END ==
LOC: ORTHO 08:21
PROVIDERS: ATTEND Orthopaedic Surgery
DX: Z47.89 Encounter for other orthopedic aftercare (principal); E11.9 Type 2 diabetes mellitus without complications; K21.9 Gastro-esophageal reflux disease without esophagitis; I10 Essential (primary) hypertension

== ENCOUNTER → 2022-12-09 | Outpatient (CLI) | payer OTHER ==
--- NOTE | 2022-12-09 09:29 | Diagnostic Imaging Report ---
INDICATION: Left knee pain AP and lateral views of the left knee are obtained and compared to 11/09/2022. Left knee prosthesis appears in good alignment with no sign of fracture or device loosening. There is no acute bony abnormality. IMPRESSION: Well-aligned left knee prosthesis with no acute abnormality. Dictated by: Dictated on workstation # [id number]
== END ==
LOC: ORTHO 08:03
PROVIDERS: ATTEND Orthopaedic Surgery
DX: M25.562 Pain in left knee (principal)
CPT/HCPCS: 73560

== ENCOUNTER → 2023-02-03 | Outpatient (CLI) | payer OTHER | LOC: ORTHO 08:17 | PROVIDERS: ATTEND Orthopaedic Surgery | DX: Z47.89 Encounter for other orthopedic aftercare (principal) ==